=== PATIENT | male | born 1965 | race Caucasian/White ===

== ENCOUNTER 2016-08-09 10:28 | Emergency (ER) | payer OTHER ==
[~2016-08-09] VITALS: Ht 180.3 cm; Wt 107.0 kg
[~2016-08-09 10:28] MED LIST: FURO20TA PO; GABA600T PO; LEVA750T PO; LINE1TAB PO; XANA1TAB2 PO
[2016-08-09 10:39] VITALS: BP 145/86; PULSE 85; RESP 16; TEMP 98.6; O2SAT 99
[2016-08-09 10:42] VITALS: BP 145/86; PULSE 84; RESP 16; O2SAT 100
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
[2016-08-09] MEDS ORDERED: METF500T PO (11:02)
[2016-08-09] MEDS ORDERED: PRED10 PO (11:02)
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
[2016-08-09] MEDS ORDERED: ROBA750T PO (12:29)
[2016-08-09] MEDS ORDERED: MOBI15TA PO (12:29)
[2016-08-09 12:56] VITALS: BP 137/82; PULSE 80; RESP 18; O2SAT 99
== END 2016-08-09 12:59 | disposition home or self-care (01) ==
LOC: NEPC 10:28
DX: S16.1XXA Strain of muscle, fascia and tendon at neck level, initial encounter (principal); S46.912A Strain of unspecified muscle, fascia and tendon at shoulder and upper arm level, left arm, initial encounter; I10 Essential (primary) hypertension; E78.00 Pure hypercholesterolemia, unspecified; V43.52XA Car driver injured in collision with other type car in traffic accident, initial encounter; Y93.9 Activity, unspecified; Y92.9 Unspecified place or not applicable; Y99.8 Other external cause status
CPT/HCPCS: 71010; 72125; 73030

== ENCOUNTER 2016-09-15 19:01 | Emergency (ER) | payer OTHER, MEDICAID ==
[~2016-09-15] VITALS: Ht 177.8 cm; Wt 107.0 kg
[~2016-09-15 19:01] MED LIST changes: -LEVA750T PO; +METF500T PO; +MOBI15TA PO; +PRED10 PO; +ROBA750T PO
[2016-09-15 19:16] VITALS: BP 114/81; PULSE 80; RESP 16; TEMP 98.2; O2SAT 97
--- NOTE | 2016-09-15 19:56 | PD ---
HPI Chief Complaint: Respiratory Symptoms Time Seen by Provider: 19:46 Travel History International Travel<30 days: No Contact w/Intl Traveler<30days: No Traveled to known affect area: No History of Present Illness HPI The patient is a 51-year-old male that for the past 2 days complains of a sharp , pleuritic left chest wall pain made worse with coughing and movements. It hurts to touch the area. The pain radiates the back on both sides. He states he is coughing up green sputum. He quit smoking 20 years ago. He denies any fever. He denies any hemoptysis. He does not have any real shortness of breath , it just hurts him to breathe. The patient has COPD and is on oxygen continuously. PFSH Past Medical History Hx Anticoagulant Therapy: No Arthritis: Yes Asthma: No Autoimmune Disease: No Anxiety: Yes Depression: No Heart Rhythm Problems: No Cancer: No Cardiovascular Problems: Yes (HTN, CHOL) High Cholesterol: Yes Chest Pain: No Congestive Heart Failure: No COPD: No Cerebrovascular Accident: No Diabetes: No Diminished Hearing: No Endocrine: No Gastrointestinal Disorders: No GERD: No Genitourinary: Yes Hiatal Hernia: No Hypertension: Yes Immune Disorder: No Kidney Stones: No Musculoskeletal: Yes Neurologic: Yes (NEUROPATHY) Psychiatric: Yes Reproductive: No Respiratory: Yes (BRONCHITIS, SARCOIDOSIS (ON OXYGEN 17/10 AT HOME)) Migraines: No Pneumonia: Yes Seizures: No Sleep Apnea: No Thyroid Disease: No Ulcer: No Influenza Vaccination: Yes Past Surgical History Abdominal Surgery: No Cardiac Surgery: No Ear Surgery: No Endocrine Surgery: No Eye Surgery: No Genitourinary Surgery: No Gynecologic Surgery: No Neurologic Surgery: Yes (laminectomy) Oral Surgery: No Thoracic Surgery: No Other Surgery: Yes ([id number]) Social History Alcohol Use: No Tobacco Use: No (QUIT AGE 31) Substance Use: Yes (RARE MARIJUANA USE) Allergies-Medications (Allergen,Severity, Reaction): Coded Allergies: Guaifenesin (Verified Allergy, Severe, Shortness of Breath, 09/15/16) "STOPPED MY BREATHING" Penicillin (Verified Allergy, Severe, Hives, 09/15/16) Reported Meds & Prescriptions Reported Meds & Active Scripts Active Furosemide 20 Mg Tab 20 Mg PO DAILY Reported Ventolin Hfa 18 GM Inh (Albuterol Sulfate) 90 Mcg/Act Aer 2 Puff INH Q4-6H PRN Albuterol Neb (Albuterol Sulfate) 2.5 Mg/3 Ml Neb 2.5 Mg NEB Q4HR NEB PRN Prednisone 10 Mg Tab 15 Mg PO DAILY Gabapentin 600 Mg Tab 600 Mg PO TID Xanax (Alprazolam) 1 Mg Tab 1 Mg PO TID Review of Systems Except as stated in HPI: all other systems reviewed are Neg Physical Exam Narrative GENERAL: The patient is alert, oriented 3 in slight apparent distress with his pleuritic chest pain. His vital signs are normal. SKIN: Focused skin assessment warm/dry. HEAD: Atraumatic. Normocephalic. EYES: Pupils equal and round. No scleral icterus. No injection or drainage. ENT: No nasal bleeding or discharge. Mucous membranes pink and moist. NECK: Trachea midline. No JVD. CARDIOVASCULAR: Regular rate and rhythm. No murmur appreciated. RESPIRATORY: No accessory muscle use. A few slight rhonchi are heard bilaterally. Breath sounds equal bilaterally. I can completely reproduce the patient's chest pain by pressing on the chest wall where the patient perceives his pain. The ribs appear very tender but no crepitus, neither bony nor air is present. Greatly diminished breath sounds are heard bilaterally. GASTROINTESTINAL: Abdomen soft, non-tender, nondistended. Hepatic and splenic margins not palpable. MUSCULOSKELETAL: No obvious deformities. No clubbing. No cyanosis. No edema. NEUROLOGICAL: Awake and alert. No obvious cranial nerve deficits. Motor grossly within normal limits. Normal speech. PSYCHIATRIC: Appropriate mood and affect; insight and judgment normal. Data Data Last Documented VS Vital Signs Date Time Temp Pulse Resp B/P Pulse Ox O2 Delivery O2 Flow Rate FiO2 09/15/16 20:16 77 09/15/16 20:13 20 99 Nasal Cannula 3 09/15/16 19:16 98.2 114/81 Orders Complete Blood Count With Diff (09/15/16 19:56) Basic Metabolic Panel (Bmp) (09/15/16 19:56) Chest, Pa & Lat (09/15/16 19:56) Alprazolam (Xanax) (09/15/16 21:15) Labs Laboratory Tests Test 09/15/16 20:07 White Blood Count 10.9 TH/MM3 Red Blood Count 4.13 MIL/MM3 Hemoglobin 12.9 GM/DL Hematocrit 36.8 % Mean Corpuscular Volume 89.2 FL Mean Corpuscular Hemoglobin 31.3 PG Mean Corpuscular Hemoglobin 35.1 % Concent Red Cell Distribution Width 13.0 % Platelet Count 203 TH/MM3 Mean Platelet Volume 8.3 FL Neutrophils (%) (Auto) 78.3 % Lymphocytes (%) (Auto) 11.7 % Monocytes (%) (Auto) 6.1 % Eosinophils (%) (Auto) 0.5 % Basophils (%) (Auto) 3.4 % Neutrophils # (Auto) 8.4 TH/MM3 Lymphocytes # (Auto) 1.3 TH/MM3 Monocytes # (Auto) 0.7 TH/MM3 Eosinophils # (Auto) 0.1 TH/MM3 Basophils # (Auto) 0.4 TH/MM3 CBC Comment DIFF FINAL Differential Comment Sodium Level 142 MEQ/L Potassium Level 3.7 MEQ/L Chloride Level 104 MEQ/L Carbon Dioxide Level 29.6 MEQ/L Anion Gap 8 MEQ/L Blood Urea Nitrogen 13 MG/DL Creatinine 0.99 MG/DL Estimat Glomerular Filtration 79 ML/MIN Rate Random Glucose 155 MG/DL Calcium Level 8.9 MG/DL MDM Medical Decision Making Medical Screen Exam Complete: Yes Emergency Medical Condition: Yes Medical Record Reviewed: Yes Interpretation(s) The chest x-ray shows no acute disease. The CBC shows a hemoglobin of 12.9 with hematocrit 36.6 but is otherwise unremarkable. The basic metabolic profile shows a glucose of 155 but is otherwise unremarkable. Differential Diagnosis Pneumonia, bronchitis, viral syndrome Narrative Course Patient has COPD and bronchitis. Plan: He will be given a course of Zithromax for 5 days. He needs to increase his liquid intake. He does have green sputum and states that this is the same way he felt before he got a pneumonia. Physician Communication Physician Communication The antibiotic is one tablet daily for 5 days. If this is a virus the antibiotic will not be of any benefit because we cannot treat viruses. Follow- up with the [place] next week. Diagnosis Primary Impression: Bronchitis Med/Other Pt SpecificInfo: Prescription(s) given Scripts Azithromycin (Zithromax)500 Mg Kbn230 Mg PO DAILY 5 Days Ref 0 Prov:Lj Montano MD 09/15/16 Disposition: 01 DISCHARGE HOME Condition: Stable Lj Montano MD Sep 15, 2016 19:56
[2016-09-15 20:13] VITALS: PULSE 77; RESP 20; O2SAT 97; O2SAT 99
[2016-09-15] MEDS ORDERED: VENTAER INH (20:19)
[2016-09-15] MEDS ORDERED: ALBU0.08 NEB (20:19)
[2016-09-15 20:20] LABS: AUTOMATED NEUTROPHIL # 8.4 TH/MM3 (1.8-7.7); BASOPHIL # 0.4 TH/MM3 (0-0.2); BASOPHIL % 3.4 % (0.0-2.0); EOSINOPHIL # 0.1 TH/MM3 (0-0.4); EOSINOPHIL % 0.5 % (0.0-4.0); HEMATOCRIT 36.8 % (39.0-51.0); HEMO FLAGS DIFF FINAL; LYMPH % 11.7 % (9.0-44.0); LYMPHOCYTE # 1.3 TH/MM3 (1.0-4.8); MEAN CELL VOLUME 89.2 FL (80.0-100.0); MEAN CORPUSCULAR HEMOGLOBIN 31.3 PG (27.0-34.0); MEAN CORPUSCULAR HGB CONC 35.1 % (32.0-36.0); MONO % 6.1 % (0.0-8.0); NEUT % 78.3 % (16.0-70.0); PLATELET COUNT 203 TH/MM3 (150-450); RED BLOOD COUNT 4.13 MIL/MM3 (4.50-5.90); WHITE BLOOD COUNT 10.9 TH/MM3 (4.0-11.0)
[2016-09-15 20:24] LABS: POTASSIUM 3.7 MEQ/L (3.5-5.1)
[2016-09-15 20:27] LABS: BICARBONATE 29.6 MEQ/L (21.0-32.0)
--- NOTE | 2016-09-15 21:01 | RADRPT ---
EXAM DATE/TIME: 09/15/2016 20:33 [facility] COMPARISON: CHEST PA & LAT, December 25, 2015, 5:47. INDICATIONS : Patient has been short of breath since yesterday and also has a productive cough. MEDICAL HISTORY : Hypertension. SURGICAL HISTORY : None. ENCOUNTER: Initial ACUITY: 1 day PAIN SCORE: 6/10 LOCATION: Bilateral chest FINDINGS: PA and lateral views of the chest demonstrate the lungs to be symmetrically aerated without evidence of mass, infiltrate or effusion. The cardiomediastinal contours are unremarkable. Osseous structure s are intact. CONCLUSION: No acute disease. Abhishek Rodríguez MD on September 15, 2016 at 20:57 Board Certified Radiologist. This report was verified electronically.
[2016-09-15] MEDS ORDERED: ZITH500T PO (21:14)
[2016-09-15] MEDS ORDERED: ALPRAZolam 0.5 MG TAB PO ONE (21:15)
[2016-09-15] MEDS ORDERED: ALPRAZolam 1 MG TAB PO ONE (21:15)
[2016-09-15 21:31] VITALS: BP 118/80
== END 2016-09-15 21:32 | disposition home or self-care (01) ==
LOC: PHED 19:01
DX: J40 Bronchitis, not specified as acute or chronic (principal); J44.9 Chronic obstructive pulmonary disease, unspecified; I10 Essential (primary) hypertension; E78.00 Pure hypercholesterolemia, unspecified; G62.9 Polyneuropathy, unspecified; Z99.81 Dependence on supplemental oxygen; R07.89 Other chest pain
CPT/HCPCS: 71020; 80048; 85025; 99284

== ENCOUNTER 2017-01-21 17:35 | Inpatient (IN) | payer MEDICAID, OTHER ==
[~2017-01-21] VITALS: Ht 180.3 cm; Wt 114.0 kg
[~2017-01-21 17:35] MED LIST changes: +ALBU0.08 NEB; -LINE1TAB PO; -METF500T PO; -MOBI15TA PO; -ROBA750T PO; +VENTAER INH; +ZITH500T PO
[2017-01-21 17:46] VITALS: BP 164/88; PULSE 73; RESP 18; TEMP 98.5; O2SAT 97
--- NOTE | 2017-01-21 18:08 | PD ---
HPI Chief Complaint: Injury Time Seen by Provider: 17:59 Travel History International Travel<30 days: No Contact w/Intl Traveler<30days: No Traveled to known affect area: No History of Present Illness HPI The patient is a 51-year-old male who presents to the emergency department for left leg injury after stepping off a curb. The patient states when he stepped off the curb, he somehow twisted his leg and fell to the ground. He complains of left ankle pain that radiates to left knee. He complains of tenderness over the medial lateral aspect the left ankle as well as the lateral aspect of the proximal left fibula. He does note abrasion over the anterior aspect of the left tibia as well as an abrasion over the extensor surface of the left forearm. He denies any head injury or trauma during the fall. He denies any headache, neck pain, chest, shortness breath, nausea, vomiting, abdominal pain, or syncope. Symptoms are moderate, exacerbated after falling, and there are no current alleviating factors. PFSH Past Medical History Hx Anticoagulant Therapy: No Arthritis: Yes Asthma: No Autoimmune Disease: No Anxiety: Yes Depression: No Heart Rhythm Problems: No Cancer: No Cardiovascular Problems: Yes (HTN, CHOL) High Cholesterol: Yes Chest Pain: No Congestive Heart Failure: No COPD: No Cerebrovascular Accident: No Diabetes: No Diminished Hearing: No Endocrine: No Gastrointestinal Disorders: No GERD: No Genitourinary: Yes Hiatal Hernia: No Hypertension: Yes Immune Disorder: No Kidney Stones: No Musculoskeletal: Yes Neurologic: Yes (NEUROPATHY) Psychiatric: Yes Reproductive: No Respiratory: Yes Migraines: No Pneumonia: Yes Seizures: No Sleep Apnea: No Thyroid Disease: No Ulcer: No Past Surgical History Abdominal Surgery: No Cardiac Surgery: No Ear Surgery: No Endocrine Surgery: No Eye Surgery: No Genitourinary Surgery: No Gynecologic Surgery: No Neurologic Surgery: Yes (laminectomy) Oral Surgery: No Thoracic Surgery: No Other Surgery: Yes ([id number]) Social History Alcohol Use: No Tobacco Use: No (QUIT AGE 31) Substance Use: Yes (RARE MARIJUANA USE) Allergies-Medications (Allergen,Severity, Reaction): Coded Allergies: guaifenesin (Unverified Allergy, Severe, Shortness of Breath, 01/21/17) "STOPPED MY BREATHING" penicillin G (Unverified Allergy, Severe, Hives, 01/21/17) Reported Meds & Prescriptions Reported Meds & Active Scripts Active [place] (Hydrocodone-Acetaminophen) 5-325 mg Tab 1 Tab PO Q6H PRN Furosemide 20 Mg Tab 20 Mg PO DAILY Reported Oxygen (O2) Device Liter REGULO.CANULA CONTINUOUS Oxygen Concentrator Portable Gaseous 2 L/min via Nasal Canula Continuous For 99 months Ventolin Hfa 18 GM Inh (Albuterol Sulfate) 90 Mcg/Act Aer 2 Puff INH Q4-6H PRN Albuterol Neb (Albuterol Sulfate) 2.5 Mg/3 Ml Neb 2.5 Mg NEB Q4HR NEB PRN Prednisone 10 Mg Tab 15 Mg PO DAILY Gabapentin 600 Mg Tab 600 Mg PO TID Xanax (Alprazolam) 1 Mg Tab 1 Mg PO TID Review of Systems Except as stated in HPI: all other systems reviewed are Neg HENT: No: Headaches, Neck Pain Cardiovascular: No: Chest Pain or Discomfort, Syncope Respiratory: No: Shortness of Breath Gastrointestinal: No: Nausea, Vomiting, Abdominal Pain Musculoskeletal: Positive: Edema, Pain Skin: Positive Other (abrasions) Neurologic: No: Paresthesia, Sensory Disturbance Physical Exam Narrative GENERAL: Awake, alert, pleasant 51-year-old male who appears his stated age is in no acute respiratory distress. SKIN: Focused skin assessment warm/dry. Abrasion over the extensor surface of the forearm as well as anterior aspect of the proximal left tibia. HEAD: Atraumatic. Normocephalic. No visible cephalohematoma. EYES: Pupils equal and round. No scleral icterus. No injection or drainage. ENT: No nasal bleeding or discharge. Mucous membranes pink and moist. NECK: Trachea midline. No JVD. Tenderness of the cervical vertebrae. CARDIOVASCULAR: Regular rate and rhythm. No murmur appreciated. RESPIRATORY: No accessory muscle use. Clear to auscultation. Breath sounds equal bilaterally. GASTROINTESTINAL: Abdomen soft, non-tender, nondistended. MUSCULOSKELETAL: Examination of the left lower extremity reveals edema over the medial lateral malleus with tenderness. Patient also has tenderness of the proximal one third of the left fibula. He is able flex and extend the left knee , patella is midline. Positive left dorsalis pedal pulse. NEUROLOGICAL: Awake and alert. No obvious cranial nerve deficits. Motor grossly within normal limits. Normal speech. Sensation is intact the medial, lateral, dorsal aspect the left foot. Patient alert and oriented 4. PSYCHIATRIC: Appropriate mood and affect; insight and judgment normal. Data Data Last Documented VS Vital Signs Date Time Temp Pulse Resp B/P (MAP) Pulse Ox O2 Delivery O2 Flow Rate FiO2 01/21/17 20:01 85 18 132/88 (103) 98 Nasal Cannula 3.00 01/21/17 17:46 98.5 Orders Orders Morphine Inj (Morphine Inj) (01/21/17 18:15) Promethazine Inj (Phenergan Inj) (01/21/17 18:15) Tibia/Fibula (Ap/Lat) (01/21/17 ) Tetanus/Diphtheria Tox Adult (Tetanus/Di (01/21/17 18:15) Morphine Inj (Morphine Inj) (01/21/17 18:45) Morphine Inj (Morphine Inj) (01/21/17 18:45) Crutches (01/21/17 18:46) Ankle, Complete ([id number]) (01/21/17 ) Splint Or Brace Apply/Monitor (01/21/17 19:04) Admit Order (Ed Use Only) (01/21/17 20:14) Complete Blood Count With Diff (01/21/17 20:14) Comprehensive Metabolic Panel (01/21/17 20:14) Prothrombin Time / Inr (Pt) (01/21/17 20:14) Act Partial Throm Time (Ptt) (01/21/17 20:14) MDM Medical Decision Making Medical Screen Exam Complete: Yes Emergency Medical Condition: Yes Medical Record Reviewed: Yes Interpretation(s) Last Impressions Tibia/Fibula X-Ray 01/21/17 0000 Signed Impressions: Service Date/Time: Saturday, January 21, 2017 18:29 - CONCLUSION: Fracture of the proximal fibula. Abhishek Rodríguez MD Differential Diagnosis Differential diagnoses includes fracture, dislocation, contusion, hematoma, abrasion, mechanical fall. Narrative Course The patient was administered morphine and Phenergan IM. X-ray of the left tibia /fibular was obtained. The patient's tetanus shot was updated. X-ray of the left tibia/fibular reveals a proximal left fibula fracture, questionable posterior tibial fracture. I discussed the patient with the physician registered dental assistant rda on-call for Dr. Bragg at cell phone number [phone], he requests 3 view x-ray of the ankle after Mahsa splint is placed. The patient will be provided pain medications and follow-up information for Dr. Bragg. The patient was signed out to Dr. Johnson at 7 PM with x-ray of the ankle pending. Diagnosis Primary Impression: Fracture of proximal end of left fibula Qualified Codes: S82.832A - Other fracture of upper and lower end of left fibula, initial encounter for closed fracture Admitting Information Admitting Physician Requests: Admit Referrals: Mervin Bragg MD Patient Instructions: General Instructions, Narcotic given in the ED Additional Instructions: Splint and crutches as directed. Elevate, ice, pain medications as directed. Follow-up with Dr. Bragg. Return if symptoms worsen or progress. Med/Other Pt SpecificInfo: Prescription(s) given Scripts Calcium Carbonate-Vitamin D (Calcium 600+D 200) 600-200 Mg-Unit Tab 1 TAB PO BID for Nutritional Supplement, #90 TAB 0 Refills Prov: Abhishek Lewis Jr. 01/22/17 Hydrocodone-Acetaminophen (Hydrocodone-Acetaminophen) 7.5-325 mg Tab 1 TAB PO Q4H Y for PAIN, #60 TAB 0 Refills Prov: Abhishek Lewis Jr. 01/22/17 Hydrocodone-Acetaminophen ([place]) 5-325 mg Tab 1 TAB PO Q6H Y for PAIN, #20 TAB 0 Refills Prov: Agustin Graff MD 01/21/17 Condition: Stable Agustin Graff MD Jan 21, 2017 18:08
[2017-01-21] MEDS ORDERED: OXYGENDME NAS.CANULA (18:09)
[2017-01-21] MEDS ORDERED: PROMETHAZINE INJ 25 MG/ML VIAL IM ONE (18:15)
[2017-01-21] MEDS ORDERED: TETANUS/DIPHTHERIA TOXOID ADULT 0.5 ML VIAL IM ONE (18:15)
[2017-01-21] MEDS ORDERED: MORPHINE SULFATE 4 MG/ML INJ IM ONE (18:15)
[2017-01-21] MEDS ORDERED: MORPHINE SULFATE 8 MG/ML INJ IM ONE ×2 (18:45)
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
[2017-01-21] MEDS ORDERED: NORC5TAB PO (19:10)
[2017-01-21 20:01] VITALS: BP 132/88; PULSE 85; RESP 18; O2SAT 98
--- NOTE | 2017-01-21 20:20 | RADRPT ---
EXAM DATE/TIME: 01/21/2017 19:13 [place] COMPARISON: TIBIA/FIBULA LEFT (AP/LAT), January 21, 2017, 18:29. INDICATIONS : Pain post fall. MEDICAL HISTORY : Hypertension. SURGICAL HISTORY : Spinal. ENCOUNTER: Initial ACUITY: 1 day PAIN SCORE: 10/10 LOCATION: Left Lower leg FINDINGS: Three-view examination of the ankle is performed in fiberglass splint. The posterior tibial fragment remains mildly displaced and the multiple fragments of the medial tibiotalar region persist; at leas t 8 fragments seen. There is persistent widening of the medial ankle mortise. CONCLUSION: Ankle fractures in fiberglass splint. Jude Rankin MD on January 21, 2017 at 20:17 Board Certified Radiologist. This report was verified electronically.
[2017-01-21] MEDS ORDERED: MORPHINE SULFATE 2 MG/ML INJ SQ PRN (20:30)
[2017-01-21] MEDS ORDERED: RESP: ALBUTEROL 2.5 MG/IPRATROPIUM 0.5 MG NEB (PRN) NEB (20:30)
[2017-01-21] MEDS ORDERED: NALOXONE HCL 0.4 MG/ML AMP IV PUSH PRN (20:30)
[2017-01-21] MEDS ORDERED: SODIUM CHLORIDE 0.9% FLUSH 10 ML FLUSH IV FLUSH PRN (20:30)
[2017-01-21 20:50] LABS: AUTOMATED NEUTROPHIL # 8.9 TH/MM3 (1.8-7.7); BASOPHIL % 0.4 % (0.0-2.0); EOSINOPHIL # 0.1 TH/MM3 (0-0.4); EOSINOPHIL % 0.5 % (0.0-4.0); HEMATOCRIT 41.8 % (39.0-51.0); LYMPH % 11.7 % (9.0-44.0); LYMPHOCYTE # 1.3 TH/MM3 (1.0-4.8); MEAN CORPUSCULAR HEMOGLOBIN 28.9 PG (27.0-34.0); MEAN CORPUSCULAR HGB CONC 33.5 % (32.0-36.0); MEAN PLATELET VOLUME 8.1 FL (7.0-11.0); MONO % 3.8 % (0.0-8.0); MONOCYTE # 0.4 TH/MM3 (0-0.9); NEUT % 83.6 % (16.0-70.0); PLATELET COUNT 206 TH/MM3 (150-450); RED BLOOD COUNT 4.86 MIL/MM3 (4.50-5.90); RED CELL DISTRIBUTION WIDTH 13.8 % (11.6-17.2); WHITE BLOOD COUNT 10.7 TH/MM3 (4.0-11.0)
[2017-01-21 20:56] LABS: CHLORIDE 105 MEQ/L (98-107); SODIUM (NA) 140 MEQ/L (136-145)
[2017-01-21 21:00] LABS: ALBUMIN 3.9 GM/DL (3.4-5.0); BICARBONATE 26.7 MEQ/L (21.0-32.0); BLOOD UREA NITROGEN 12 MG/DL (7-18); GLUCOSE,RANDOM 113 MG/DL (74-106)
[2017-01-21 21:02] LABS: INTERNATIONAL NORMALIZED RATIO 0.9 RATIO
[2017-01-21 21:03] LABS: ALT (GPT) 30 U/L (12-78); AST (GOT) 22 U/L (15-37); CREATININE 0.97 MG/DL (0.60-1.30); GLOMERULAR FILTRATION RATE 81 ML/MIN (>89)
[2017-01-21 21:05] LABS: TOTAL BILIRUBIN ADULT 0.4 MG/DL (0.2-1.0); TOTAL PROTEIN 7.6 GM/DL (6.4-8.2)
[2017-01-21 21:06] LABS: ALKALINE PHOSPHATASE 67 U/L (45-117)
[2017-01-21] MEDS: SODIUM CHLORIDE 0.9% FLUSH 10 ML FLUSH IV FLUSH SCH (21:06)
[2017-01-21 21:27] VITALS: BP 138/80; PULSE 82; RESP 18; O2SAT 97
[2017-01-21 22:29] VITALS: BP 136/84; PULSE 82; RESP 18; O2SAT 97
[2017-01-21 23:00] VITALS: BP 125/81; PULSE 70; RESP 18; TEMP 98.4; O2SAT 97
[2017-01-22] MEDS ORDERED: SODIUM CHLORID 0.9% 500 ML IV PRN (01:00)
[2017-01-22] MEDS ORDERED: POVIDONE IODINE 5% (ANTISEPSIS KIT) 4 APPLICATIONS EACH NARE PRN (01:00)
[2017-01-22] MEDS ORDERED: LACTATED RINGER'S 1000 ML IV PRN (01:00)
[2017-01-22] MEDS ORDERED: INSULIN HUMAN REGULAR 1,000 UNITS/10 ML VIAL SQ PRN (01:00)
[2017-01-22] MEDS ORDERED: CHLORHEXIDINE GLUCONATE 2 % 1 PACK (2 CLOTHS) TOPICAL PRN (01:00)
[2017-01-22] MEDS: MORPHINE SULFATE 2 MG/ML INJ IV PRN ×2 (01:32→06:37)
[2017-01-22] MEDS ORDERED: ALBUTEROL SULFATE 90 MCG/ACT HFA 8 GM INHALER INH PRN (03:00)
[2017-01-22] MEDS ORDERED: RESP: ALBUTEROL 2.5 MG/3 ML NEB (PRN) NEB (03:00)
[2017-01-22] MEDS ORDERED: HYDROCORTISONE SOD SUCCINATE 100 MG VIAL IV PUSH ONE (03:00)
--- NOTE | 2017-01-22 03:08 | HHI.HP ---
[facility] Service [facility] Primary Care Physician [facility] Admission Diagnosis ankle fracture Diagnoses: Travel History International Travel<30 Days: No Contact w/Intl Traveler <30 Da: No Traveled to Known Affected Are: No History of Present Illness 51-year-old male with a history of sarcoidosis, bronchitis, anxiety, panic attacks, who presents with a ground-level fall, fracturing her left lower leg. He says that he tripped going down the steps, his oxygen tank fell forward pulling him further. He denies any other injuries. Denies any chest pain.report shortness of breath is at baseline. Review of Systems Except as stated in HPI: all other systems reviewed are Neg Past Family Social History Past Medical History Sarcoidosis History of pneumonia Hypertension Radiculopathy Anxiety Panic attacks Agoraphobia Past Surgical History Bilateral knee arthroplasty Bronchoscopies Spinal laminectomy Reported Medications Reported Meds & Active Scripts Active Furosemide 20 Mg Tab 20 Mg PO DAILY Reported Oxygen (O2) Device Liter REGULO.CANULA CONTINUOUS Oxygen Concentrator Portable Gaseous 2 L/min via Nasal Canula Continuous For 99 months Ventolin Hfa 18 GM Inh (Albuterol Sulfate) 90 Mcg/Act Aer 2 Puff INH Q4-6H PRN Albuterol Neb (Albuterol Sulfate) 2.5 Mg/3 Ml Neb 2.5 Mg NEB Q4HR NEB PRN Prednisone 10 Mg Tab 15 Mg PO DAILY Gabapentin 600 Mg Tab 600 Mg PO TID Xanax (Alprazolam) 1 Mg Tab 1 Mg PO TID prednisone 15 mg by mouth daily Allergies: Coded Allergies: guaifenesin (Unverified Allergy, Severe, Shortness of Breath, 01/21/17) "STOPPED MY BREATHING" penicillin G (Unverified Allergy, Severe, Hives, 01/21/17) Family History Brother had MT in his 40s. Social History he quit smoking 18 years ago. Nondrinker. Patient will marijuana use. Physical Exam Vital Signs Vital Signs Date Time Temp Pulse Resp B/P (MAP) Pulse Ox O2 Delivery O2 Flow Rate FiO2 01/21/17 23:39 Nasal Cannula 3.00 01/21/17 23:00 98.4 70 18 125/81 (96) 97 01/21/17 22:30 82 18 97 01/21/17 22:29 82 18 136/84 (101) 97 01/21/17 21:27 82 18 138/80 (99) 97 01/21/17 20:01 85 18 132/88 (103) 98 Nasal Cannula 3.00 01/21/17 17:46 98.5 73 18 164/88 (113) 97 Physical Exam GENERAL: This is a well-nourished, well-developed patient, in no apparent distress. Alert and oriented 3. SKIN: No rashes, ecchymoses or lesions. Cool and dry. HEAD: Atraumatic. Normocephalic. No temporal or scalp tenderness. EYES: Pupils equal round and reactive. Extraocular motions intact. No scleral icterus. No injection or drainage. ENT: Nose without bleeding, purulent drainage or septal hematoma. Throat without erythema, tonsillar hypertrophy or exudate. Uvula midline. Airway patent. NECK: Trachea midline. No JVD or lymphadenopathy. Supple, nontender, no meningeal signs. CARDIOVASCULAR: Regular rate and rhythm without murmurs, gallops, or rubs. RESPIRATORY: Clear to auscultation. Breath sounds equal bilaterally. No wheezes , rales, or rhonchi. GASTROINTESTINAL: Abdomen soft, non-tender, nondistended. No hepato-splenomegaly , or palpable masses. No guarding. MUSCULOSKELETAL: Extremities without clubbing, cyanosis, or edema. Left leg in splint. Peripheral perfusion intact. NEUROLOGICAL: Awake and alert. Cranial nerves II through XII intact. Motor and sensory grossly within normal limits. Five out of 5 muscle strength in all muscle groups. Normal speech. Laboratory Laboratory Tests Test 01/21/17 20:40 White Blood Count 10.7 Red Blood Count 4.86 Hemoglobin 14.0 Hematocrit 41.8 Mean Corpuscular Volume 86.0 Mean Corpuscular Hemoglobin 28.9 Mean Corpuscular Hemoglobin Concent 33.5 Red Cell Distribution Width 13.8 Platelet Count 206 Mean Platelet Volume 8.1 Neutrophils (%) (Auto) 83.6 Lymphocytes (%) (Auto) 11.7 Monocytes (%) (Auto) 3.8 Eosinophils (%) (Auto) 0.5 Basophils (%) (Auto) 0.4 Neutrophils # (Auto) 8.9 Lymphocytes # (Auto) 1.3 Monocytes # (Auto) 0.4 Eosinophils # (Auto) 0.1 Basophils # (Auto) 0.0 CBC Comment DIFF FINAL Differential Comment Prothrombin Time 10.0 Prothromb Time International Ratio 0.9 Activated Partial Thromboplast Time 26.3 Blood Urea Nitrogen 12 Creatinine 0.97 Random Glucose 113 Total Protein 7.6 Albumin 3.9 Calcium Level 9.0 Alkaline Phosphatase 67 Aspartate Amino Transf (AST/SGOT) 22 Alanine Aminotransferase (ALT/SGPT) 30 Total Bilirubin 0.4 Sodium Level 140 Potassium Level 3.9 Chloride Level 105 Carbon Dioxide Level 26.7 Anion Gap 8 Estimat Glomerular Filtration Rate 81 Result Diagram: 01/21/17203901/21/172039 Imaging Last Impressions Tibia/Fibula X-Ray 01/21/17 0000 Signed Impressions: Service Date/Time: Saturday, January 21, 2017 18:29 - CONCLUSION: Fracture of the proximal fibula. Abhishek Rodríguez MD Ankle X-Ray 01/21/17 0000 Signed Impressions: Service Date/Time: Saturday, January 21, 2017 19:13 - CONCLUSION: Ankle fractures in fiberglass splint. Jude Rankin MD [place] VTE Risk Assessment Caprini VTE Risk Assessment: Mod/High Risk (score >= 2) VTE Pharm Contraindication: High risk for bleeding Caprini Risk Assessment Model Point Value = 1 Point Value = 2 Point Value = 3 Point Value = 5 Age 41-60 Minor surgery BMI > 25 kg/m2 Swollen legs Varicose veins or History of unexplained or recurrent spontaneous Oral contraceptives or hormone replacement Sepsis (< 1 month) Serious lung disease, including pneumonia (< 1 month) Abnormal pulmonary function Acute myocardial infarction Congestive heart failure (< 1 month) History of inflammatory bowel disease Medical patient at bed rest Age 61-74 Arthroscopic surgery Major open surgery (> 45 min) Laparoscopic surgery (> 45 min) Malignancy Confined to bed (> 72 hours) Immobilizing plaster cast Central venous access Age >= 75 History of VTE Family history of VTE Factor V Leiden Prothrombin [id number] Lupus anticoagulant Anticardiolipin antibodies Elevated serum homocysteine Heparin-induced thrombocytopenia Other congenital or acquired thrombophilia Stroke (< 1 month) Elective arthroplasty Hip, pelvis, or leg fracture Acute spinal cord injury (< 1 month) Prophylaxis Regimen Total Risk Factor Score Risk Level Prophylaxis Regimen 0-1 Low Early ambulation 2 Moderate Order ONE of the following: *Sequential Compression Device (SCD) *Heparin 5000 units SQ BID 3-4 Higher Order ONE of the following medications: *Heparin 5000 units SQ TID *Enoxaparin/Lovenox 40 mg SQ daily (WT < 150 kg, CrCl > 30 mL/min) *Enoxaparin/Lovenox 30 mg SQ daily (WT < 150 kg, CrCl > 10-29 mL/min) *Enoxaparin/Lovenox 30 mg SQ BID (WT < 150 kg, CrCl > 30 mL/min) AND/OR *Sequential Compression Device (SCD) 5 or more Highest Order ONE of the following medications: *Heparin 5000 units SQ TID (Preferred with Epidurals) *Enoxaparin/Lovenox 40 mg SQ daily (WT < 150 kg, CrCl > 30 mL/min) *Enoxaparin/Lovenox 30 mg SQ daily (WT < 150 kg, CrCl > 10-29 mL/min) *Enoxaparin/Lovenox 30 mg SQ BID (WT < 150 kg, CrCl > 30 mL/min) AND *Sequential Compression Device (SCD) Assessment and Plan Assessment and Plan //Left fibula fracture //Suspected osteoporosis due to fracture from a ground-level fall -Plan per orthopedics. Appreciate assistance. -Vitamin D level pending. -Has chronic sarcoid, suspected adrenal insufficiency, however is optimized for surgery. //History of sarcoidosis. Stable on 3 L oxygen. Nebs as necessary. Continue to monitor. //Adrenal insufficiency. Patient has been on chronic prednisone over 10 mg for many months. Continue prednisone. -Patient should be placed on dexamethasone 50 mg by mouth or IV twice daily perioperatively. //Occasional marijuana use. Patient counseled against use. //Radiculopathy. Patient is on gabapentin 600 mg 3 times daily. Continue at 400 mg 3 times a day.. //Chronic bilateral lower extremity edema. Will hold on furosemide for now. //Prophylaxis. As per surgical service. Discussed Condition With Patient, nurse, ED physician. Physician Certification 2 Midnight Certification Type: Admission for Inpatient Services Order for Inpatient Services The services are ordered in accordance with Medicare regulations or non- Medicare payer requirements, as applicable. In the case of services not specified as inpatient-only, they are appropriately provided as inpatient services in accordance with the 2-midnight benchmark. Estimated LOS (days): 2 days is the estimated time the patient will need to remain in the hospital, assuming treatment plan goals are met and no additional complications. Post-Hospital Plan: Not yet determined Roberto Maddox MD Jan 22, 2017 03:08
[2017-01-22 04:00] VITALS: BP 130/83; PULSE 66; RESP 18; TEMP 98.3; O2SAT 99
[2017-01-22 06:15] LABS: AUTOMATED NEUTROPHIL # 8.8 TH/MM3 (1.8-7.7); BASOPHIL % 0.4 % (0.0-2.0); EOSINOPHIL # 0.2 TH/MM3 (0-0.4); EOSINOPHIL % 1.4 % (0.0-4.0); HEMOGLOBIN 13.2 GM/DL (13.0-17.0); LYMPH % 13.2 % (9.0-44.0); LYMPHOCYTE # 1.5 TH/MM3 (1.0-4.8); MEAN CELL VOLUME 87.7 FL (80.0-100.0); MEAN CORPUSCULAR HEMOGLOBIN 29.8 PG (27.0-34.0); MEAN PLATELET VOLUME 8.2 FL (7.0-11.0); MONO % 7.7 % (0.0-8.0); MONOCYTE # 0.9 TH/MM3 (0-0.9); NEUT % 77.3 % (16.0-70.0); PLATELET COUNT 187 TH/MM3 (150-450); RED BLOOD COUNT 4.45 MIL/MM3 (4.50-5.90); RED CELL DISTRIBUTION WIDTH 15.1 % (11.6-17.2); WHITE BLOOD COUNT 11.4 TH/MM3 (4.0-11.0)
--- NOTE | 2017-01-22 06:37 | PD ---
Data Data Last Documented VS Vital Signs Date Time Temp Pulse Resp B/P (MAP) Pulse Ox O2 Delivery O2 Flow Rate FiO2 01/21/17 20:01 85 18 132/88 (103) 98 Nasal Cannula 3.00 01/21/17 17:46 98.5 Orders Orders Morphine Inj (Morphine Inj) (01/21/17 18:15) Promethazine Inj (Phenergan Inj) (01/21/17 18:15) Tibia/Fibula (Ap/Lat) (01/21/17 ) Tetanus/Diphtheria Tox Adult (Tetanus/Di (01/21/17 18:15) Morphine Inj (Morphine Inj) (01/21/17 18:45) Morphine Inj (Morphine Inj) (01/21/17 18:45) Crutches (01/21/17 18:46) Ankle, Complete ([id number]) (01/21/17 ) Splint Or Brace Apply/Monitor (01/21/17 19:04) Admit Order (Ed Use Only) (01/21/17 20:14) Complete Blood Count With Diff (01/21/17 20:14) Comprehensive Metabolic Panel (01/21/17 20:14) Prothrombin Time / Inr (Pt) (01/21/17 20:14) Act Partial Throm Time (Ptt) (01/21/17 20:14) MDM Medical Record Reviewed: No Supervised Visit with FARHAN: No Narrative Course This is a 51-year-old male who presents to the emergency department having had a mechanical fall. He has a proximal fibular fracture from her os the distal tibia with widening of the ankle mortise on x-ray. I spoke to Nasir Lewis who would like the patient admitted for surgery by Dr. Bragg tomorrow. Patient was transferred to the main hospital. Diagnosis Primary Impression: Fracture of proximal end of left fibula Qualified Codes: S82.832A - Other fracture of upper and lower end of left fibula, initial encounter for closed fracture Additional Impression: Fracture of distal end of tibia Qualified Codes: S82.309A - Unspecified fracture of lower end of unspecified tibia, initial encounter for closed fracture Admitting Information Admitting Physician Requests: Admit Referrals: Mervin Bragg MD Patient Instructions: General Instructions, Narcotic given in the ED Additional Instruction: Splint and crutches as directed. Elevate, ice, pain medications as directed. Follow-up with Dr. Bragg. Return if symptoms worsen or progress. Scripts Hydrocodone-Acetaminophen ([place]) 5-325 mg Tab 1 TAB PO Q6H Y for PAIN, #20 TAB 0 Refills Prov: Agustin Graff MD 01/21/17 Disposition: 01 DISCHARGE HOME Condition: Stable Gabriella Mejia MD Jan 22, 2017 06:37
--- NOTE | 2017-01-22 06:37 | PD ---
Data Data Last Documented VS Vital Signs Date Time Temp Pulse Resp B/P (MAP) Pulse Ox O2 Delivery O2 Flow Rate FiO2 01/21/17 20:01 85 18 132/88 (103) 98 Nasal Cannula 3.00 01/21/17 17:46 98.5 Orders Orders Morphine Inj (Morphine Inj) (01/21/17 18:15) Promethazine Inj (Phenergan Inj) (01/21/17 18:15) Tibia/Fibula (Ap/Lat) (01/21/17 ) Tetanus/Diphtheria Tox Adult (Tetanus/Di (01/21/17 18:15) Morphine Inj (Morphine Inj) (01/21/17 18:45) Morphine Inj (Morphine Inj) (01/21/17 18:45) Crutches (01/21/17 18:46) Ankle, Complete ([id number]) (01/21/17 ) Splint Or Brace Apply/Monitor (01/21/17 19:04) Admit Order (Ed Use Only) (01/21/17 20:14) Complete Blood Count With Diff (01/21/17 20:14) Comprehensive Metabolic Panel (01/21/17 20:14) Prothrombin Time / Inr (Pt) (01/21/17 20:14) Act Partial Throm Time (Ptt) (01/21/17 20:14) MDM Medical Record Reviewed: No Supervised Visit with FARHAN: No Narrative Course This is a 51-year-old male who presents to the emergency department having had a mechanical fall. He has a proximal fibular fracture from her os the distal tibia with widening of the ankle mortise on x-ray. I spoke to Nasir Lewis who would like the patient admitted for surgery by Dr. Bragg tomorrow. Patient was transferred to the main hospital. Diagnosis Primary Impression: Fracture of proximal end of left fibula Qualified Codes: S82.832A - Other fracture of upper and lower end of left fibula, initial encounter for closed fracture Additional Impression: Fracture of distal end of tibia Qualified Codes: S82.309A - Unspecified fracture of lower end of unspecified tibia, initial encounter for closed fracture Admitting Information Admitting Physician Requests: Admit Referrals: Mervin Bragg MD Patient Instructions: General Instructions, Narcotic given in the ED Additional Instruction: Splint and crutches as directed. Elevate, ice, pain medications as directed. Follow-up with Dr. Bragg. Return if symptoms worsen or progress. Scripts Hydrocodone-Acetaminophen ([place]) 5-325 mg Tab 1 TAB PO Q6H Y for PAIN, #20 TAB 0 Refills Prov: Agustin Graff MD 01/21/17 Disposition: 01 DISCHARGE HOME Condition: Stable Gabriella Mejia MD Jan 22, 2017 06:37
--- NOTE | 2017-01-22 06:37 | PD ---
Data Data Last Documented VS Vital Signs Date Time Temp Pulse Resp B/P (MAP) Pulse Ox O2 Delivery O2 Flow Rate FiO2 01/21/17 20:01 85 18 132/88 (103) 98 Nasal Cannula 3.00 01/21/17 17:46 98.5 Orders Orders Morphine Inj (Morphine Inj) (01/21/17 18:15) Promethazine Inj (Phenergan Inj) (01/21/17 18:15) Tibia/Fibula (Ap/Lat) (01/21/17 ) Tetanus/Diphtheria Tox Adult (Tetanus/Di (01/21/17 18:15) Morphine Inj (Morphine Inj) (01/21/17 18:45) Morphine Inj (Morphine Inj) (01/21/17 18:45) Crutches (01/21/17 18:46) Ankle, Complete ([id number]) (01/21/17 ) Splint Or Brace Apply/Monitor (01/21/17 19:04) Admit Order (Ed Use Only) (01/21/17 20:14) Complete Blood Count With Diff (01/21/17 20:14) Comprehensive Metabolic Panel (01/21/17 20:14) Prothrombin Time / Inr (Pt) (01/21/17 20:14) Act Partial Throm Time (Ptt) (01/21/17 20:14) MDM Medical Record Reviewed: No Supervised Visit with FARHAN: No Narrative Course This is a 51-year-old male who presents to the emergency department having had a mechanical fall. He has a proximal fibular fracture from her os the distal tibia with widening of the ankle mortise on x-ray. I spoke to Nasir Lewis who would like the patient admitted for surgery by Dr. Bragg tomorrow. Patient was transferred to the main hospital. Diagnosis Primary Impression: Fracture of proximal end of left fibula Qualified Codes: S82.832A - Other fracture of upper and lower end of left fibula, initial encounter for closed fracture Additional Impression: Fracture of distal end of tibia Qualified Codes: S82.309A - Unspecified fracture of lower end of unspecified tibia, initial encounter for closed fracture Admitting Information Admitting Physician Requests: Admit Referrals: Mervin Bragg MD Patient Instructions: General Instructions, Narcotic given in the ED Additional Instruction: Splint and crutches as directed. Elevate, ice, pain medications as directed. Follow-up with Dr. Bragg. Return if symptoms worsen or progress. Scripts Hydrocodone-Acetaminophen ([place]) 5-325 mg Tab 1 TAB PO Q6H Y for PAIN, #20 TAB 0 Refills Prov: Agustin Graff MD 01/21/17 Disposition: 01 DISCHARGE HOME Condition: Stable Gabriella Mejia MD Jan 22, 2017 06:37
--- NOTE | 2017-01-22 06:40 | PD.ORT.PN ---
Subjective Subjective Remarks House was splinted out from [place] and is staying at a hotel. He was walking rolled his ankle off a curb and fell to the ground. Only complaint is left leg pain and ankle pain Objective Vitals Vital Signs Date Time Temp Pulse Resp B/P (MAP) Pulse Ox O2 Delivery O2 Flow Rate FiO2 01/22/17 04:00 98.3 66 18 130/83 (99) 99 01/21/17 23:39 Nasal Cannula 3.00 01/21/17 23:05 97 Nasal Cannula 3.00 01/21/17 23:00 98.4 70 18 125/81 (96) 97 01/21/17 22:30 82 18 97 01/21/17 22:29 82 18 136/84 (101) 97 01/21/17 21:27 82 18 138/80 (99) 97 01/21/17 20:01 85 18 132/88 (103) 98 Nasal Cannula 3.00 01/21/17 17:46 98.5 73 18 164/88 (113) 97 Result Diagram: 01/22/1751801/21/172039 Other Results Laboratory Tests Test 01/21/17 20:40 Prothromb Time International Ratio 0.9 RATIO Prothrombin Time 10.0 SEC (9.8-11.6) Imaging Last 72 hours Impressions Tibia/Fibula X-Ray 01/21/17 0000 Signed Impressions: Service Date/Time: Saturday, January 21, 2017 18:29 - CONCLUSION: Fracture of the proximal fibula. Abhishek Rodríguez MD Ankle X-Ray 01/21/17 0000 Signed Impressions: Service Date/Time: Saturday, January 21, 2017 19:13 - CONCLUSION: Ankle fractures in fiberglass splint. Jude Rankin MD Objective Remarks Left lower extremity: No pain with hip range of motion., Tenderness distal to the knee laterally. Splint intact with intact sensation over all toes.. Good capillary refills Assessment & Plan Assessment and Plan Left proximal fibula fracture, posterior malleolus and syndesmosis rupture Nothing by mouth Sign consents Surgery this morning with Dr. Bragg. We'll plan on discharge to home if doing well with physical therapy and pain this afternoon Abhishek Lewis Jr. Jan 22, 2017 06:40
[2017-01-22] MEDS ORDERED: HYDR-3580 PO (06:42)
[2017-01-22] MEDS ORDERED: CALCTAB19 PO (06:42)
[2017-01-22] MEDS ORDERED: WALKER WHEELS/F1 MIS (06:42)
[2017-01-22 06:43] LABS: ALBUMIN 3.6 GM/DL (3.4-5.0); ALT (GPT) 27 U/L (12-78); AST (GOT) 23 U/L (15-37); BICARBONATE 29.9 MEQ/L (21.0-32.0); BLOOD UREA NITROGEN 13 MG/DL (7-18); CALCIUM 8.7 MG/DL (8.5-10.1); CHLORIDE 107 MEQ/L (98-107); CREATININE 0.97 MG/DL (0.60-1.30); GLOMERULAR FILTRATION RATE 81 ML/MIN (>89); GLUCOSE,RANDOM 103 MG/DL (74-106); SODIUM (NA) 142 MEQ/L (136-145)
[2017-01-22 06:45] LABS: ALKALINE PHOSPHATASE 60 U/L (45-117); TOTAL BILIRUBIN ADULT 0.6 MG/DL (0.2-1.0); TOTAL PROTEIN 6.8 GM/DL (6.4-8.2)
[2017-01-22] MEDS ORDERED: VANCOMYCIN HCL 1000 MG VIAL ONE (07:03)
[2017-01-22] MEDS ORDERED: GENTAMICIN SULFATE 80 MG/2 ML VIAL ONE (07:03)
[2017-01-22] MEDS ORDERED: ceFAZolin 2 GM PREMIX 0 ML ONE (07:03)
[2017-01-22] MEDS ORDERED: CLINDAMYCIN PHOS 600 MG/4 ML VIAL ONE (07:29)
[2017-01-22] MEDS ORDERED: ACETAMINOPHEN 1000 MG/100 ML 100 ML IV ONE (07:35)
--- NOTE | 2017-01-22 08:24 | PD.OP ---
cc: Mervin Kirkland MD Operative Report Date of Surgery: Jan 22, 2017 Preoperative Diagnosis: Left ankle trimalleolar fracture with syndesmosis disruption Postoperative Diagnosis: Procedure: Open reduction internal fixation left ankle posterior malleolus with syndesmosis repair Anesthesia: Gen. Surgeon: Mervin Kirkland Drum Maker(s): KIRAN Putnam PA-C The surgical procedure was assisted by my physician litigation assistant. My P.A. presence was necessary throughout this case for the manipulation and positioning of the surgical extremity. My P.A. was assisting me throughout the duration of this procedure. The skill set of a physician litigation assistant was medically necessary to complete this procedure. During the surgical case the medical surgical tech was working at the back table and the physician litigation assistant was directly assisting me. Operation and Findings: Patient was seen and evaluated preoperatively and found to have a displaced left ankle fracture. Informed consent was obtained after a detailed discussion of risk and benefits of surgery. The operative site was marked. Patient was brought to the OR, placed on the OR table, and given IV sedation and general endotracheal anesthesia. IV antibiotics were given preoperatively. A timeout procedure was performed. The left leg was prepped with alcohol followed by Hibiclens and draped in the usual sterile fashion. Attention was turned towards the distal fibula. The syndesmosis was stressed. There was clear widening of the syndesmosis with external rotation of the ankle. Patient had a high fibular shaft fracture. A 2 inch incision was made over the distal fibula at the level of the syndesmosis. The syndesmosis was now held in a reduced position with the ankle in neutral position. A 2 hole ITS plate was selected. Two 3.5 cortical screws were now placed through the fibula plate into the tibia. The syndesmosis was held in reduced position during screw placement Fluoroscopy confirmed appropriate screw placement with well-aligned syndesmosis. The fibular shaft fracture was visualized and found to be appropriately reduced. The fibula appeared to be out to length. The medial malleolus fragment was very small avulsion fracture. The fracture fragment was too small for internal fixation. At this point the posterior malleolus was visualized under fluoroscopy. A fracture tenaculum was placed around the posterior malleolus fragment. The posterior malleolus fragment was reduced. A small incision was made over the anterior tibia. A 3.5 cortical lag screw was placed from anterior to posterior. The posterior malleolus fragment was captured with the screw. The ankle was now examined and found to be stable under fluoroscopy. Incisions were thoroughly irrigated. The subcutaneous tissue was closed with 3-0 Vicryl and the skin was closed with 3-0 nylon. Sterile dressings were applied. The patient was transferred to Recovery in stable condition. Mervin Kirkland MD Jan 22, 2017 08:24
--- NOTE | 2017-01-22 08:24 | PD.OP ---
cc: Mervin Kirkland MD Operative Report Date of Surgery: Jan 22, 2017 Preoperative Diagnosis: Left ankle trimalleolar fracture with syndesmosis disruption Postoperative Diagnosis: Procedure: Open reduction internal fixation left ankle posterior malleolus with syndesmosis repair Anesthesia: Gen. Surgeon: Mervin Kirkland Scrap Metal Collector(s): KIRAN Putnam PA-C The surgical procedure was assisted by my physician lens assistant. My P.A. presence was necessary throughout this case for the manipulation and positioning of the surgical extremity. My P.A. was assisting me throughout the duration of this procedure. The skill set of a physician lens assistant was medically necessary to complete this procedure. During the surgical case the surgical assistant certified was working at the back table and the physician lens assistant was directly assisting me. Operation and Findings: Patient was seen and evaluated preoperatively and found to have a displaced left ankle fracture. Informed consent was obtained after a detailed discussion of risk and benefits of surgery. The operative site was marked. Patient was brought to the OR, placed on the OR table, and given IV sedation and general endotracheal anesthesia. IV antibiotics were given preoperatively. A timeout procedure was performed. The left leg was prepped with alcohol followed by Hibiclens and draped in the usual sterile fashion. Attention was turned towards the distal fibula. The syndesmosis was stressed. There was clear widening of the syndesmosis with external rotation of the ankle. Patient had a high fibular shaft fracture. A 2 inch incision was made over the distal fibula at the level of the syndesmosis. The syndesmosis was now held in a reduced position with the ankle in neutral position. A 2 hole ITS plate was selected. Two 3.5 cortical screws were now placed through the fibula plate into the tibia. The syndesmosis was held in reduced position during screw placement Fluoroscopy confirmed appropriate screw placement with well-aligned syndesmosis. The fibular shaft fracture was visualized and found to be appropriately reduced. The fibula appeared to be out to length. The medial malleolus fragment was very small avulsion fracture. The fracture fragment was too small for internal fixation. At this point the posterior malleolus was visualized under fluoroscopy. A fracture tenaculum was placed around the posterior malleolus fragment. The posterior malleolus fragment was reduced. A small incision was made over the anterior tibia. A 3.5 cortical lag screw was placed from anterior to posterior. The posterior malleolus fragment was captured with the screw. The ankle was now examined and found to be stable under fluoroscopy. Incisions were thoroughly irrigated. The subcutaneous tissue was closed with 3-0 Vicryl and the skin was closed with 3-0 nylon. Sterile dressings were applied. The patient was transferred to Recovery in stable condition. Mervin Kirkland MD Jan 22, 2017 08:24
--- NOTE | 2017-01-22 08:24 | PD.OP ---
cc: Mervin Kirkland MD Operative Report Date of Surgery: Jan 22, 2017 Preoperative Diagnosis: Left ankle trimalleolar fracture with syndesmosis disruption Postoperative Diagnosis: Procedure: Open reduction internal fixation left ankle posterior malleolus with syndesmosis repair Anesthesia: Gen. Surgeon: Mervin Kirkland Hide Puller(s): KIRAN Putnam PA-C The surgical procedure was assisted by my physician healthcare administrative assistant. My P.A. presence was necessary throughout this case for the manipulation and positioning of the surgical extremity. My P.A. was assisting me throughout the duration of this procedure. The skill set of a physician healthcare administrative assistant was medically necessary to complete this procedure. During the surgical case the neurosurgical physician assistant was working at the back table and the physician healthcare administrative assistant was directly assisting me. Operation and Findings: Patient was seen and evaluated preoperatively and found to have a displaced left ankle fracture. Informed consent was obtained after a detailed discussion of risk and benefits of surgery. The operative site was marked. Patient was brought to the OR, placed on the OR table, and given IV sedation and general endotracheal anesthesia. IV antibiotics were given preoperatively. A timeout procedure was performed. The left leg was prepped with alcohol followed by Hibiclens and draped in the usual sterile fashion. Attention was turned towards the distal fibula. The syndesmosis was stressed. There was clear widening of the syndesmosis with external rotation of the ankle. Patient had a high fibular shaft fracture. A 2 inch incision was made over the distal fibula at the level of the syndesmosis. The syndesmosis was now held in a reduced position with the ankle in neutral position. A 2 hole ITS plate was selected. Two 3.5 cortical screws were now placed through the fibula plate into the tibia. The syndesmosis was held in reduced position during screw placement Fluoroscopy confirmed appropriate screw placement with well-aligned syndesmosis. The fibular shaft fracture was visualized and found to be appropriately reduced. The fibula appeared to be out to length. The medial malleolus fragment was very small avulsion fracture. The fracture fragment was too small for internal fixation. At this point the posterior malleolus was visualized under fluoroscopy. A fracture tenaculum was placed around the posterior malleolus fragment. The posterior malleolus fragment was reduced. A small incision was made over the anterior tibia. A 3.5 cortical lag screw was placed from anterior to posterior. The posterior malleolus fragment was captured with the screw. The ankle was now examined and found to be stable under fluoroscopy. Incisions were thoroughly irrigated. The subcutaneous tissue was closed with 3-0 Vicryl and the skin was closed with 3-0 nylon. Sterile dressings were applied. The patient was transferred to Recovery in stable condition. Mervin Kirkland MD Jan 22, 2017 08:24
[2017-01-22] MEDS ORDERED: ceFAZolin 2 GM PREMIX 50 ML IV SCH (08:30)
[2017-01-22] MEDS ORDERED: ONDANSETRON HCL 4 MG/2 ML VIAL IVP PRN (08:30)
[2017-01-22] MEDS ORDERED: Post-op Orders (for Pharmacy) MISC XX ONE (08:30)
[2017-01-22] MEDS ORDERED: MORPHINE SULFATE 4 MG/ML INJ IV PUSH PRN (08:30)
[2017-01-22] MEDS ORDERED: DO NOT ADM ANY ANTICOAGULANT DRUGS PRN (08:39)
[2017-01-22] MEDS ORDERED: *morphine SULFATE 8 MG/ML PERIprocedure ONLY ONE (08:48)
[2017-01-22] MEDS: SODIUM CHLORIDE 0.9% FLUSH 10 ML FLUSH IV FLUSH SCH (09:00)
[2017-01-22] MEDS ORDERED: predniSONE 10 MG TAB PO SCH (09:00)
[2017-01-22 09:05] VITALS: BP 130/88; PULSE 75; TEMP 98.2; O2SAT 97
--- NOTE | 2017-01-22 09:09 | MB ---
cc: TERRELL WHITE DATE OF CONSULTATION: 01/22/2017 REASON FOR CONSULTATION: Left ankle fracture. CONSULTING PHYSICIAN Dr. Roberto Maddox. HISTORY Tanvir is a 51-year-old male who had a fall. He states he stepped off a curb and twisted his ankle. He has previously broken his ankle before. He felt immediate left ankle pain. He felt a pop. He was unable to stand or ambulate. He presented to the emergency room where x-rays revealed a displaced left ankle fracture. He is currently awake and alert on the orthopedic floor. PAST MEDICAL HISTORY ILLNESSES Sarcoidosis, hypertension, radiculopathy, anxiety, panic attacks, and agoraphobia. PAST SURGICAL HISTORY: Bilateral knee replacement. Bronchoscopies. Lumbar laminectomy. MEDICATIONS: Please see EMR for complete list of medications. This includes: 1. Lasix. 2. Oxygen. 3. Ventolin. 4. Albuterol. 5. Prednisone. 6. Gabapentin. 7. Xanax. ALLERGIES: GUAIFENESIN PENICILLIN FAMILY HISTORY: Positive of coronary artery disease in his brother. SOCIAL HISTORY: The patient quit smoking 18 years ago. He does not drink. He uses marijuana occasionally. REVIEW OF SYSTEMS The patient denies headache, visual changes, neck pain, chest pain, abdominal pain, nausea, vomiting or recent weight loss or numbness and tingling of the extremities. He denies fever or chills. He does have some shortness of breath. He complains of left ankle pain. PHYSICAL EXAMINATION The patient is a well-developed, well-nourished 51 year-old male in no acute distress. He is awake and alert. He is alert and oriented x3. He appears well-developed, well-nourished. Vital signs: Temperature 98.3, pulse 66, respirations 18, blood pressure 130/83, O2 sat 99% on 3 liters nasal cannula. Head: The patient is normocephalic. Pupils are equal. Neck: Soft, nontender. Trachea is midline. Abdomen: Soft, nontender, nondistended. Extremities: Examination of bilateral upper extremities reveals no obvious pain or deformity with shoulder, elbow or wrist motion. He has intact sensation in all fingers. He has good capillary refill in all fingers. Skin is intact. Sensation is intact in all fingers. Examination of the right leg reveals no pain with hip, knee or ankle motion. Skin is intact. Dorsalis pedis pulses palpable. Sensation is intact. Examination of left leg reveals no pain with hip or knee motion. He is diffusely tender around the ankle. Skin is intact. Sensation is intact in left foot. He has pain with any ankle motion. X-RAYS X-rays of left tibia and left ankle were reviewed. The patient has a distal fibula fracture, medial malleolus avulsion fracture, posterior malleolus fracture, as well as a fibular shaft fracture. There appears to be widening of the syndesmosis. IMPRESSION Left ankle fractures with possible syndesmosis disruption. PLAN Treatment options were discussed with the patient. At this point I would recommend open reduction internal fixation of left ankle with possible open reduction internal fixation of syndesmosis. The risk of surgery includes bleeding, infection, injury to arteries, nerves and blood vessels, nonunion, malunion, painful hardware, ankle stiffness, ankle arthritis, as well as medical complications including blood clot, stroke, heart attack and . All questions were answered. I will plan on surgery today. A mid-level provider in my office, nurse practitioner or PA, may see this patient on a follow-up basis and continue to implement the objective of this plan including: Starting or adjusting medications, injections of muscle, tendon, bursa or joints, cast application, orthotic or brace application, physical therapy, further radiographic studies including x-ray, MRI, CT, ultrasounds or bone scan, vascular studies, neurologic studies, or other specialist consultations, and proceeding with surgical management as appropriate. MD MALCOLM Mcbride/REGULO /6:47 AM /7:15 AM
--- NOTE | 2017-01-22 09:10 | RADRPT ---
EXAM DATE/TIME: 01/22/2017 07:57 [facility] COMPARISON: TIBIA/FIBULA LEFT (AP/LAT), January 21, 2017, 18:29. INDICATIONS : Open reduction. MEDICAL HISTORY : None. SURGICAL HISTORY : None. ENCOUNTER: Subsequent ACUITY: 2 days PAIN SCORE: Non-responsive. LOCATION: Left lateral FINDINGS: Hardware is noted within the distal tibia and fibula status post ORIF of the previously noted fractur es. The mildly displaced proximal fibular fracture is again noted. CONCLUSION: 1. Status post ORIF of ankle fracture with hardware in good position. 2. Stable mildly displaced proximal fibular fracture. Petr Lewis MD on January 22, 2017 at 9:04 Board Certified Radiologist. This report was verified electronically.
[2017-01-22] MEDS: GABAPENTIN 400 MG CAP PO SCH ×2 (09:44→13:04)
[2017-01-22] MEDS: ACETAMINOPHEN/HYDROcodone 325 MG/7.5 MG TAB PO PRN ×2 (09:45→13:04)
[2017-01-22 10:50] VITALS: RESP 16
--- NOTE | 2017-01-22 13:20 | HHI.DCPOC ---
Discharge Care Plan Diagnosis: (1) Fracture of proximal end of left fibula (2) Fracture of distal end of tibia Goals to Promote Your Health * To prevent worsening of your condition and complications * To maintain your health at the optimal level Directions to Meet Your Goals Take your medications as prescribed Follow your dietary instruction Follow activity as directed Keep your appointments as scheduled Take your immunizations and boosters as scheduled If your symptoms worsen call your PCP, if no PCP go to Urgent Care Center or Emergency Room Smoking is Dangerous to Your Health. Avoid second hand smoke Call the 24-hour hour crisis hotline for domestic abuse at Abhishek Martínez DO Jan 22, 2017 13:20
--- NOTE | 2017-01-22 13:20 | HHI.DCPOC ---
Discharge Care Plan Diagnosis: (1) Fracture of proximal end of left fibula (2) Fracture of distal end of tibia Goals to Promote Your Health * To prevent worsening of your condition and complications * To maintain your health at the optimal level Directions to Meet Your Goals Take your medications as prescribed Follow your dietary instruction Follow activity as directed Keep your appointments as scheduled Take your immunizations and boosters as scheduled If your symptoms worsen call your PCP, if no PCP go to Urgent Care Center or Emergency Room Smoking is Dangerous to Your Health. Avoid second hand smoke Call the 24-hour hour crisis hotline for domestic abuse at Abhishek Martínez DO Jan 22, 2017 13:20
--- NOTE | 2017-01-22 13:20 | HHI.DCPOC ---
Discharge Care Plan Diagnosis: (1) Fracture of proximal end of left fibula (2) Fracture of distal end of tibia Goals to Promote Your Health * To prevent worsening of your condition and complications * To maintain your health at the optimal level Directions to Meet Your Goals Take your medications as prescribed Follow your dietary instruction Follow activity as directed Keep your appointments as scheduled Take your immunizations and boosters as scheduled If your symptoms worsen call your PCP, if no PCP go to Urgent Care Center or Emergency Room Smoking is Dangerous to Your Health. Avoid second hand smoke Call the 24-hour hour crisis hotline for domestic abuse at Abhishek Martínez DO Jan 22, 2017 13:20
--- NOTE | 2017-01-22 13:21 | HHI.DCPOC ---
Discharge Care Plan Diagnosis: (1) Fracture of proximal end of left fibula Goals to Promote Your Health * To prevent worsening of your condition and complications * To maintain your health at the optimal level Directions to Meet Your Goals Take your medications as prescribed Follow your dietary instruction Follow activity as directed Keep your appointments as scheduled Take your immunizations and boosters as scheduled If your symptoms worsen call your PCP, if no PCP go to Urgent Care Center or Emergency Room Smoking is Dangerous to Your Health. Avoid second hand smoke Call the 24-hour hour crisis hotline for domestic abuse at Abhishek Martínez DO Jan 22, 2017 13:21
--- NOTE | 2017-01-22 13:21 | HHI.DCPOC ---
Discharge Care Plan Diagnosis: (1) Fracture of proximal end of left fibula Goals to Promote Your Health * To prevent worsening of your condition and complications * To maintain your health at the optimal level Directions to Meet Your Goals Take your medications as prescribed Follow your dietary instruction Follow activity as directed Keep your appointments as scheduled Take your immunizations and boosters as scheduled If your symptoms worsen call your PCP, if no PCP go to Urgent Care Center or Emergency Room Smoking is Dangerous to Your Health. Avoid second hand smoke Call the 24-hour hour crisis hotline for domestic abuse at Abhishek Martínez DO Jan 22, 2017 13:21
--- NOTE | 2017-01-22 13:21 | HHI.DCPOC ---
Discharge Care Plan Diagnosis: (1) Fracture of proximal end of left fibula Goals to Promote Your Health * To prevent worsening of your condition and complications * To maintain your health at the optimal level Directions to Meet Your Goals Take your medications as prescribed Follow your dietary instruction Follow activity as directed Keep your appointments as scheduled Take your immunizations and boosters as scheduled If your symptoms worsen call your PCP, if no PCP go to Urgent Care Center or Emergency Room Smoking is Dangerous to Your Health. Avoid second hand smoke Call the 24-hour hour crisis hotline for domestic abuse at Abhishek Martínez DO Jan 22, 2017 13:21
--- NOTE | 2017-01-22 13:25 | HHI.PR ---
Subjective Remarks The pt was ready to go home. Has been ambulating. He had questions about the surgery. His family was at the bedside. Discussed with nursing. Objective Vitals Vital Signs Date Time Temp Pulse Resp B/P (MAP) Pulse Ox O2 Delivery O2 Flow Rate FiO2 01/22/17 10:50 16 01/22/17 09:05 98.2 75 16 130/88 (102) 97 Nasal Cannula 3 01/22/17 09:00 82 16 130/92 (105) 96 Nasal Cannula 3 01/22/17 08:45 85 16 135/71 (92) 95 Nasal Cannula 3 01/22/17 08:35 97.9 86 17 132/64 (86) 98 Simple Mask 8 01/22/17 04:00 98.3 66 18 130/83 (99) 99 01/21/17 23:39 Nasal Cannula 3.00 01/21/17 23:05 97 Nasal Cannula 3.00 01/21/17 23:00 98.4 70 18 125/81 (96) 97 01/21/17 22:30 82 18 97 01/21/17 22:29 82 18 136/84 (101) 97 01/21/17 21:27 82 18 138/80 (99) 97 01/21/17 20:01 85 18 132/88 (103) 98 Nasal Cannula 3.00 01/21/17 17:46 98.5 73 18 164/88 (113) 97 I/O 01/21/17 01/21/17 01/21/17 01/22/17 01/22/17 01/22/17 07:00 15:00 23:00 07:00 15:00 23:00 Intake Total 400 ml Output Total 100 ml 50 ml Balance -100 ml 350 ml Intake IV Total 400 ml Output Urine Total 100 ml Estimated Blood Loss 50 ml # Voids 1 # Bowel Movements 0 Result Diagram: 01/22/1719 01/22/1719 Imaging Last Impressions Tibia/Fibula X-Ray 01/22/17 0000 Signed Impressions: Service Date/Time: Sunday, January 22, 2017 07:57 - CONCLUSION: 1. Status post ORIF of ankle fracture with hardware in good position. 2. Stable mildly displaced proximal fibular fracture. Petr Lewis MD Ankle X-Ray 01/21/17 0000 Signed Impressions: Service Date/Time: Saturday, January 21, 2017 19:13 - CONCLUSION: Ankle fractures in fiberglass splint. Jude Rankin MD Objective Remarks GENERAL: This is a well-nourished, well-developed patient, in no apparent distress. SKIN: No rashes, ecchymoses or lesions. Cool and dry. HEAD: Atraumatic. Normocephalic. No temporal or scalp tenderness. EYES: Pupils equal round and reactive. Extraocular motions intact. No scleral icterus. No injection or drainage. ENT: Nose without bleeding, purulent drainage or septal hematoma. Throat without erythema, tonsillar hypertrophy or exudate. Uvula midline. Airway patent. NECK: Trachea midline. No JVD or lymphadenopathy. Supple, nontender, no meningeal signs. CARDIOVASCULAR: Regular rate and rhythm without murmurs, gallops, or rubs. RESPIRATORY: Clear to auscultation. Breath sounds equal bilaterally. No wheezes , rales, or rhonchi. GASTROINTESTINAL: Abdomen soft, non-tender, nondistended. No hepato-splenomegaly , or palpable masses. No guarding. MUSCULOSKELETAL: Left leg bandaged. NEUROLOGICAL: Awake and alert. Cranial nerves II through XII intact. Motor and sensory grossly within normal limits. Five out of 5 muscle strength in all muscle groups. Normal speech. PSYCH: Mood and affect appropriate. Medications and IVs Current Medications Medications (Trade) Dose Ordered Sig/Zahida Route Start Time Stop Time Status Last Admin (NS Flush) 2 ml UNSCH PRN IV FLUSH 01/21/17 20:30 (NS Flush) 2 ml BID IV FLUSH 01/21/17 21:00 01/22/17 09:00 (Narcan Inj) 0.4 mg UNSCH PRN IV PUSH 01/21/17 20:30 (Duoneb Neb) 1 ampule Q2HR NEB PRN NEB 01/21/17 20:30 01/21/17 23:39 Lactated Ringer's 1,000 ml @ 30 mls/hr Q24H PRN IV 01/22/17 01:00 01/25/17 00:59 Sodium Chloride 500 ml @ 30 mls/hr [id number] PRN IV 01/22/17 01:00 01/25/17 00:59 (Betadine 5% Antisepsis Kit) 1 applic DIRECTOR ACUTE PRN EACH NARE 01/22/17 01:00 01/25/17 00:59 (Chlorhexidine 2% Cloth) 3 pack DIRECTOR ACUTE PRN TOPICAL 01/22/17 01:00 01/25/17 00:59 (NovoLIN R INJ) See Protocol Table ... DIRECTOR ACUTE PRN SQ 01/22/17 01:00 01/25/17 00:59 (Proair Hfa Inh) 2 puff Q4HR PRN INH 01/22/17 03:00 (Albuterol Neb) 2.5 mg Q4HR NEB PRN NEB 01/22/17 03:00 (Deltasone) 15 mg DAILY PO 01/22/17 09:00 01/22/17 09:45 (Neurontin) 400 mg TID PO 01/22/17 09:00 01/22/17 13:04 (Zofran Inj) 4 mg Q4H PRN IVP 01/22/17 08:30 (Morphine Inj) 4 mg Q3H PRN IV PUSH 01/22/17 08:30 ([place] 7.5-325 Mg) 1 tab Q3H PRN PO 01/22/17 08:30 01/22/17 13:04 Miscellaneous Information ALL NURSING DEPARTME... UNSCH PRN .XX 01/22/17 08:39 01/23/17 08:38 A/P Assessment and Plan //Left fibula fracture //Suspected osteoporosis due to fracture from a ground-level fall -Plan per orthopedics. Appreciate assistance. S/p ORIF. Cleared for d/c. - pain control. - calcium and vit D upon discharge. - follow up with ortho as an outpt. //History of sarcoidosis. Stable on 3 L oxygen. Nebs as necessary. Continue to monitor. - continue home oxygen. //Adrenal insufficiency. Patient has been on chronic prednisone over 10 mg for many months. Continue prednisone. //Occasional marijuana use. Patient counseled against use. //Radiculopathy. Patient is on gabapentin 600 mg 3 times daily. Continue at 400 mg 3 times a day.. //Chronic bilateral lower extremity edema. - resume home meds. //Prophylaxis. As per surgical service. Discharge Planning D/c home with Abhishek Gayle DO Jan 22, 2017 13:25
--- NOTE | 2017-01-22 13:25 | HHI.PR ---
Subjective Remarks The pt was ready to go home. Has been ambulating. He had questions about the surgery. His family was at the bedside. Discussed with nursing. Objective Vitals Vital Signs Date Time Temp Pulse Resp B/P (MAP) Pulse Ox O2 Delivery O2 Flow Rate FiO2 01/22/17 10:50 16 01/22/17 09:05 98.2 75 16 130/88 (102) 97 Nasal Cannula 3 01/22/17 09:00 82 16 130/92 (105) 96 Nasal Cannula 3 01/22/17 08:45 85 16 135/71 (92) 95 Nasal Cannula 3 01/22/17 08:35 97.9 86 17 132/64 (86) 98 Simple Mask 8 01/22/17 04:00 98.3 66 18 130/83 (99) 99 01/21/17 23:39 Nasal Cannula 3.00 01/21/17 23:05 97 Nasal Cannula 3.00 01/21/17 23:00 98.4 70 18 125/81 (96) 97 01/21/17 22:30 82 18 97 01/21/17 22:29 82 18 136/84 (101) 97 01/21/17 21:27 82 18 138/80 (99) 97 01/21/17 20:01 85 18 132/88 (103) 98 Nasal Cannula 3.00 01/21/17 17:46 98.5 73 18 164/88 (113) 97 I/O 01/21/17 01/21/17 01/21/17 01/22/17 01/22/17 01/22/17 07:00 15:00 23:00 07:00 15:00 23:00 Intake Total 400 ml Output Total 100 ml 50 ml Balance -100 ml 350 ml Intake IV Total 400 ml Output Urine Total 100 ml Estimated Blood Loss 50 ml # Voids 1 # Bowel Movements 0 Result Diagram: 01/22/1719 01/22/1719 Imaging Last Impressions Tibia/Fibula X-Ray 01/22/17 0000 Signed Impressions: Service Date/Time: Sunday, January 22, 2017 07:57 - CONCLUSION: 1. Status post ORIF of ankle fracture with hardware in good position. 2. Stable mildly displaced proximal fibular fracture. Petr Lewis MD Ankle X-Ray 01/21/17 0000 Signed Impressions: Service Date/Time: Saturday, January 21, 2017 19:13 - CONCLUSION: Ankle fractures in fiberglass splint. Jude Rankin MD Objective Remarks GENERAL: This is a well-nourished, well-developed patient, in no apparent distress. SKIN: No rashes, ecchymoses or lesions. Cool and dry. HEAD: Atraumatic. Normocephalic. No temporal or scalp tenderness. EYES: Pupils equal round and reactive. Extraocular motions intact. No scleral icterus. No injection or drainage. ENT: Nose without bleeding, purulent drainage or septal hematoma. Throat without erythema, tonsillar hypertrophy or exudate. Uvula midline. Airway patent. NECK: Trachea midline. No JVD or lymphadenopathy. Supple, nontender, no meningeal signs. CARDIOVASCULAR: Regular rate and rhythm without murmurs, gallops, or rubs. RESPIRATORY: Clear to auscultation. Breath sounds equal bilaterally. No wheezes , rales, or rhonchi. GASTROINTESTINAL: Abdomen soft, non-tender, nondistended. No hepato-splenomegaly , or palpable masses. No guarding. MUSCULOSKELETAL: Left leg bandaged. NEUROLOGICAL: Awake and alert. Cranial nerves II through XII intact. Motor and sensory grossly within normal limits. Five out of 5 muscle strength in all muscle groups. Normal speech. PSYCH: Mood and affect appropriate. Medications and IVs Current Medications Medications (Trade) Dose Ordered Sig/Zahida Route Start Time Stop Time Status Last Admin (NS Flush) 2 ml UNSCH PRN IV FLUSH 01/21/17 20:30 (NS Flush) 2 ml BID IV FLUSH 01/21/17 21:00 01/22/17 09:00 (Narcan Inj) 0.4 mg UNSCH PRN IV PUSH 01/21/17 20:30 (Duoneb Neb) 1 ampule Q2HR NEB PRN NEB 01/21/17 20:30 01/21/17 23:39 Lactated Ringer's 1,000 ml @ 30 mls/hr Q24H PRN IV 01/22/17 01:00 01/25/17 00:59 Sodium Chloride 500 ml @ 30 mls/hr [id number] PRN IV 01/22/17 01:00 01/25/17 00:59 (Betadine 5% Antisepsis Kit) 1 applic CORRECTIONS CASEWORKER PRN EACH NARE 01/22/17 01:00 01/25/17 00:59 (Chlorhexidine 2% Cloth) 3 pack CORRECTIONS CASEWORKER PRN TOPICAL 01/22/17 01:00 01/25/17 00:59 (NovoLIN R INJ) See Protocol Table ... CORRECTIONS CASEWORKER PRN SQ 01/22/17 01:00 01/25/17 00:59 (Proair Hfa Inh) 2 puff Q4HR PRN INH 01/22/17 03:00 (Albuterol Neb) 2.5 mg Q4HR NEB PRN NEB 01/22/17 03:00 (Deltasone) 15 mg DAILY PO 01/22/17 09:00 01/22/17 09:45 (Neurontin) 400 mg TID PO 01/22/17 09:00 01/22/17 13:04 (Zofran Inj) 4 mg Q4H PRN IVP 01/22/17 08:30 (Morphine Inj) 4 mg Q3H PRN IV PUSH 01/22/17 08:30 ([place] 7.5-325 Mg) 1 tab Q3H PRN PO 01/22/17 08:30 01/22/17 13:04 Miscellaneous Information ALL NURSING DEPARTME... UNSCH PRN .XX 01/22/17 08:39 01/23/17 08:38 A/P Assessment and Plan //Left fibula fracture //Suspected osteoporosis due to fracture from a ground-level fall -Plan per orthopedics. Appreciate assistance. S/p ORIF. Cleared for d/c. - pain control. - calcium and vit D upon discharge. - follow up with ortho as an outpt. //History of sarcoidosis. Stable on 3 L oxygen. Nebs as necessary. Continue to monitor. - continue home oxygen. //Adrenal insufficiency. Patient has been on chronic prednisone over 10 mg for many months. Continue prednisone. //Occasional marijuana use. Patient counseled against use. //Radiculopathy. Patient is on gabapentin 600 mg 3 times daily. Continue at 400 mg 3 times a day.. //Chronic bilateral lower extremity edema. - resume home meds. //Prophylaxis. As per surgical service. Discharge Planning D/c home with Abhishek Gayle DO Jan 22, 2017 13:25
--- NOTE | 2017-01-22 13:25 | HHI.PR ---
Subjective Remarks The pt was ready to go home. Has been ambulating. He had questions about the surgery. His family was at the bedside. Discussed with nursing. Objective Vitals Vital Signs Date Time Temp Pulse Resp B/P (MAP) Pulse Ox O2 Delivery O2 Flow Rate FiO2 01/22/17 10:50 16 01/22/17 09:05 98.2 75 16 130/88 (102) 97 Nasal Cannula 3 01/22/17 09:00 82 16 130/92 (105) 96 Nasal Cannula 3 01/22/17 08:45 85 16 135/71 (92) 95 Nasal Cannula 3 01/22/17 08:35 97.9 86 17 132/64 (86) 98 Simple Mask 8 01/22/17 04:00 98.3 66 18 130/83 (99) 99 01/21/17 23:39 Nasal Cannula 3.00 01/21/17 23:05 97 Nasal Cannula 3.00 01/21/17 23:00 98.4 70 18 125/81 (96) 97 01/21/17 22:30 82 18 97 01/21/17 22:29 82 18 136/84 (101) 97 01/21/17 21:27 82 18 138/80 (99) 97 01/21/17 20:01 85 18 132/88 (103) 98 Nasal Cannula 3.00 01/21/17 17:46 98.5 73 18 164/88 (113) 97 I/O 01/21/17 01/21/17 01/21/17 01/22/17 01/22/17 01/22/17 07:00 15:00 23:00 07:00 15:00 23:00 Intake Total 400 ml Output Total 100 ml 50 ml Balance -100 ml 350 ml Intake IV Total 400 ml Output Urine Total 100 ml Estimated Blood Loss 50 ml # Voids 1 # Bowel Movements 0 Result Diagram: 01/22/1719 01/22/1719 Imaging Last Impressions Tibia/Fibula X-Ray 01/22/17 0000 Signed Impressions: Service Date/Time: Sunday, January 22, 2017 07:57 - CONCLUSION: 1. Status post ORIF of ankle fracture with hardware in good position. 2. Stable mildly displaced proximal fibular fracture. Petr Lewis MD Ankle X-Ray 01/21/17 0000 Signed Impressions: Service Date/Time: Saturday, January 21, 2017 19:13 - CONCLUSION: Ankle fractures in fiberglass splint. Jude Rankin MD Objective Remarks GENERAL: This is a well-nourished, well-developed patient, in no apparent distress. SKIN: No rashes, ecchymoses or lesions. Cool and dry. HEAD: Atraumatic. Normocephalic. No temporal or scalp tenderness. EYES: Pupils equal round and reactive. Extraocular motions intact. No scleral icterus. No injection or drainage. ENT: Nose without bleeding, purulent drainage or septal hematoma. Throat without erythema, tonsillar hypertrophy or exudate. Uvula midline. Airway patent. NECK: Trachea midline. No JVD or lymphadenopathy. Supple, nontender, no meningeal signs. CARDIOVASCULAR: Regular rate and rhythm without murmurs, gallops, or rubs. RESPIRATORY: Clear to auscultation. Breath sounds equal bilaterally. No wheezes , rales, or rhonchi. GASTROINTESTINAL: Abdomen soft, non-tender, nondistended. No hepato-splenomegaly , or palpable masses. No guarding. MUSCULOSKELETAL: Left leg bandaged. NEUROLOGICAL: Awake and alert. Cranial nerves II through XII intact. Motor and sensory grossly within normal limits. Five out of 5 muscle strength in all muscle groups. Normal speech. PSYCH: Mood and affect appropriate. Medications and IVs Current Medications Medications (Trade) Dose Ordered Sig/Zahida Route Start Time Stop Time Status Last Admin (NS Flush) 2 ml UNSCH PRN IV FLUSH 01/21/17 20:30 (NS Flush) 2 ml BID IV FLUSH 01/21/17 21:00 01/22/17 09:00 (Narcan Inj) 0.4 mg UNSCH PRN IV PUSH 01/21/17 20:30 (Duoneb Neb) 1 ampule Q2HR NEB PRN NEB 01/21/17 20:30 01/21/17 23:39 Lactated Ringer's 1,000 ml @ 30 mls/hr Q24H PRN IV 01/22/17 01:00 01/25/17 00:59 Sodium Chloride 500 ml @ 30 mls/hr [id number] PRN IV 01/22/17 01:00 01/25/17 00:59 (Betadine 5% Antisepsis Kit) 1 applic FENCE MAKING MACHINE OPERATOR PRN EACH NARE 01/22/17 01:00 01/25/17 00:59 (Chlorhexidine 2% Cloth) 3 pack FENCE MAKING MACHINE OPERATOR PRN TOPICAL 01/22/17 01:00 01/25/17 00:59 (NovoLIN R INJ) See Protocol Table ... FENCE MAKING MACHINE OPERATOR PRN SQ 01/22/17 01:00 01/25/17 00:59 (Proair Hfa Inh) 2 puff Q4HR PRN INH 01/22/17 03:00 (Albuterol Neb) 2.5 mg Q4HR NEB PRN NEB 01/22/17 03:00 (Deltasone) 15 mg DAILY PO 01/22/17 09:00 01/22/17 09:45 (Neurontin) 400 mg TID PO 01/22/17 09:00 01/22/17 13:04 (Zofran Inj) 4 mg Q4H PRN IVP 01/22/17 08:30 (Morphine Inj) 4 mg Q3H PRN IV PUSH 01/22/17 08:30 ([place] 7.5-325 Mg) 1 tab Q3H PRN PO 01/22/17 08:30 01/22/17 13:04 Miscellaneous Information ALL NURSING DEPARTME... UNSCH PRN .XX 01/22/17 08:39 01/23/17 08:38 A/P Assessment and Plan //Left fibula fracture //Suspected osteoporosis due to fracture from a ground-level fall -Plan per orthopedics. Appreciate assistance. S/p ORIF. Cleared for d/c. - pain control. - calcium and vit D upon discharge. - follow up with ortho as an outpt. //History of sarcoidosis. Stable on 3 L oxygen. Nebs as necessary. Continue to monitor. - continue home oxygen. //Adrenal insufficiency. Patient has been on chronic prednisone over 10 mg for many months. Continue prednisone. //Occasional marijuana use. Patient counseled against use. //Radiculopathy. Patient is on gabapentin 600 mg 3 times daily. Continue at 400 mg 3 times a day.. //Chronic bilateral lower extremity edema. - resume home meds. //Prophylaxis. As per surgical service. Discharge Planning D/c home with Abhishek Gayle DO Jan 22, 2017 13:25
--- NOTE | 2017-01-22 20:42 | EKG ---
Date Performed: 01/22/2017 Time Performed: 01:18:24 PTAGE: 51 years EKG: Sinus rhythm Lateral T wave changes are nonspecific Borderline ECG NO PREVIOUS TRACING DOCTOR: River Reed Interpretating Date/Time 01/22/2017 20:39:13
== END 2017-01-22 13:59 | disposition home or self-care (01) | DRG 493 ==
LOC: PHED 17:35 → PHEDA 20:16 → N06B 22:53
PROVIDERS: ADMIT Hospitalist; ATTEND Hospitalist
PROC: 0MQR0ZZ Repair Left Ankle Bursa and Ligament, Open Approach (ICD-10-PCS; 2017-01-22)
PROC: 0QSH04Z Reposition Left Tibia with Internal Fixation Device, Open Approach (ICD-10-PCS; principal; 2017-01-22 07:30)
DX: S82.852A Displaced trimalleolar fracture of left lower leg, initial encounter for closed fracture (principal); E27.40 Unspecified adrenocortical insufficiency; Z99.81 Dependence on supplemental oxygen; I10 Essential (primary) hypertension; D86.9 Sarcoidosis, unspecified; S93.432A Sprain of tibiofibular ligament of left ankle, initial encounter; W10.1XXA Fall (on)(from) sidewalk curb, initial encounter; Y92.410 Unspecified street and highway as the place of occurrence of the external cause; Z87.01 Personal history of pneumonia (recurrent); M54.10 Radiculopathy, site unspecified; F41.0 Panic disorder [episodic paroxysmal anxiety]; F40.00 Agoraphobia, unspecified; Z96.653 Presence of artificial knee joint, bilateral; Z87.891 Personal history of nicotine dependence; E78.00 Pure hypercholesterolemia, unspecified; F12.90 Cannabis use, unspecified, uncomplicated; Z79.52 Long term (current) use of systemic steroids; Z79.899 Other long term (current) drug therapy; M19.90 Unspecified osteoarthritis, unspecified site
CPT/HCPCS: 73590; 73610; 76000; 80053; 82306; 85025; 85610; 85730; 90471; 90714; 93005; 94150; 94664; 96372; E0113; J0131; J0690; J1580; J1720; J2270; J2550; J3370; J7512

== ENCOUNTER 2017-05-02 09:51 | Emergency (ER) | payer OTHER ==
[~2017-05-02] VITALS: Ht 177.8 cm; Wt 111.0 kg
[~2017-05-02 09:51] MED LIST changes: +CALCTAB19 PO; +HYDR-3580 PO; +OXYGENDME NAS.CANULA; +WALKER WHEELS/F1 MIS; -ZITH500T PO
[2017-05-02 10:01] VITALS: BP 142/87; PULSE 86; RESP 22; TEMP 98.4; O2SAT 98
[2017-05-02] MEDS ORDERED: LORA1TAB12 PO (10:23)
[2017-05-02] MEDS ORDERED: TIZA2CAP3 PO (10:23)
--- NOTE | 2017-05-02 10:52 | PD ---
HPI Chief Complaint: Pain: Acute or Chronic Time Seen by Provider: 10:33 Travel History International Travel<30 days: No Contact w/Intl Traveler<30days: No Traveled to known affect area: No History of Present Illness HPI Patient comes to the emergency department complaining of left ankle pain that began 4 days ago. Patient describes aching/burning pain over the medial aspect of his ankle that radiates proximally aggravating his sciatica. Patient reports he has had previous fracture and surgery on the ankle. Patient reports using ice, heat, and ankle braces with minimal to no improvement of symptoms. Pain is worse with walking. [facility]. PFSH Past Medical History Hx Anticoagulant Therapy: No Arthritis: Yes Asthma: No Autoimmune Disease: No Anxiety: Yes Depression: No Heart Rhythm Problems: No Cancer: No Cardiovascular Problems: Yes High Cholesterol: Yes Chemotherapy: No Chest Pain: No Congestive Heart Failure: No COPD: No Cerebrovascular Accident: No Diabetes: No Diminished Hearing: No Endocrine: No Gastrointestinal Disorders: No GERD: Yes Genitourinary: Yes Headaches: No Hiatal Hernia: No Hypertension: Yes Immune Disorder: No Implanted Vascular Access Dvce: No Kidney Stones: No Musculoskeletal: Yes Neurologic: Yes Psychiatric: Yes Reproductive: No Respiratory: Yes (SARCOIDOSIS, PNA) Migraines: No Pneumonia: Yes Radiation Therapy: No Renal Failure: No Seizures: No Sickle Cell Disease: No Sleep Apnea: No Thyroid Disease: No Ulcer: No Past Surgical History Abdominal Surgery: No AICD: No Arteriovenous Shunt: No Cardiac Surgery: No Ear Surgery: No Endocrine Surgery: No Eye Surgery: No Genitourinary Surgery: No Gynecologic Surgery: No Insulin Pump: No Joint Replacement: No Neurologic Surgery: Yes (laminectomy) Oral Surgery: No Pacemaker: No Thoracic Surgery: Yes (BRONCHOSCOPY R/T PNA) Other Surgery: Yes ([id number]) Social History Alcohol Use: No Tobacco Use: No (QUIT AGE 31) Substance Use: Yes (RARE MARIJUANA USE) Allergies-Medications (Allergen,Severity, Reaction): Coded Allergies: guaifenesin (Unverified Allergy, Severe, Shortness of Breath, 05/02/17) "STOPPED MY BREATHING" penicillin G (Unverified Allergy, Severe, Hives, 05/02/17) Reported Meds & Prescriptions Reported Meds & Active Scripts Active Tramadol (Tramadol HCl) 50 Mg Tab 50 Mg PO Q8H PRN Calcium 600+D 200 (Calcium Carbonate-Vitamin D) 600-200 Mg-Unit Tab 1 Tab PO BID Hydrocodone-Acetaminophen 7.5-325 mg Tab 1 Tab PO Q4H PRN Furosemide 20 Mg Tab 20 Mg PO DAILY Reported Tizanidine (Tizanidine HCl) 2 Mg Cap Unknown Dose PO TID Lorazepam 1 Mg Tab 1 Mg PO BID Oxygen (O2) Device Liter REGULO.CANULA CONTINUOUS Oxygen Concentrator Portable Gaseous 2 L/min via Nasal Canula Continuous For 99 months Ventolin Hfa 18 GM Inh (Albuterol Sulfate) 90 Mcg/Act Aer 2 Puff INH Q4-6H PRN Albuterol Neb (Albuterol Sulfate) 2.5 Mg/3 Ml Neb 2.5 Mg NEB Q4HR NEB PRN Prednisone 10 Mg Tab 15 Mg PO DAILY Gabapentin 600 Mg Tab 600 Mg PO TID Xanax (Alprazolam) 1 Mg Tab 1 Mg PO TID Review of Systems Except as stated in HPI: all other systems reviewed are Neg Physical Exam Narrative GENERAL: Well-developed, overly nourished, in no acute distress, and non-ill appearing. SKIN: Focused skin assessment warm and dry. HEAD: Atraumatic. Normocephalic. EYES: Pupils equal and round. EOMI. No scleral icterus. No injection or drainage. ENT: No nasal bleeding or discharge. Mucous membranes pink and moist. NECK: Trachea midline. Supple. No nuclear rigidity. CARDIOVASCULAR: Dorsal pulses 2+, intact, and equal bilaterally. Capillary refill less than 2 seconds. RESPIRATORY: No accessory muscle use. No respiratory distress. MUSCULOSKELETAL: No obvious deformities. No clubbing. No cyanosis. No edema. Decreased range of motion of left ankle but patient reports is chronic since his surgery. Ankle: Neagative anterior draw and Salazar test. Negative Erin' s sign. No laxity noted with passive inversion and eversion of BL ankles. Negative squeeze test. Pulses equal BL distal to injury. Capillary refill less than 2 seconds distal to injury and equal BL. Sensation equal BL 1st web space. FROM of toes distal to injury and equal BL. NV intact distal to injury and equal BL. Dorsal pulses equal BL. Patient reports tenderness to palpation over medial aspect of left ankle proximal fibula states these are sights of previous fracture. No crepitus or signs of infection. NEUROLOGICAL: Awake and alert. No obvious cranial nerve deficits. Motor grossly within normal limits. Normal speech. PSYCHIATRIC: Appropriate mood and affect; insight and judgment normal. Data Data Last Documented VS Vital Signs Date Time Temp Pulse Resp B/P (MAP) Pulse Ox O2 Delivery O2 Flow Rate FiO2 05/02/17 10:01 98.4 86 22 142/87 (105) 98 Orders Orders Tibia/Fibula (Ap/Lat) (05/02/17 ) Ed Discharge Order (05/02/17 11:44) MDM Medical Decision Making Medical Screen Exam Complete: Yes Emergency Medical Condition: Yes Interpretation(s) Last Impressions Tibia/Fibula X-Ray 05/02/17 0000 Signed Impressions: Service Date/Time: Tuesday, May 02, 2017 10:53 - CONCLUSION: 1. No acute fracture or dislocation. 2. Incomplete healing of the left proximal fibular and medial malleolar fractures. 3. Probable bone infarct involving the left distal femur. Petr Lewis MD Differential Diagnosis Arthritis, fracture, chronic pain, other Narrative Course Patient in no obvious distress upon re-evaluation. All pertinent Radiology result(s) discussed with patient. Discussed patient with Dr. Ramos prior to discharge, who is in agreement with plan of care and disposition. Patient was asked if they wanted to speak to my attending, which the patient did not wish to do at this time. Any questions/concerns in reference to patient diagnosis/ condition discussed and clarified prior to patient's discharge. Reinforced sheer importance of close follow up with patient's primary physician or primary care clinic. Instructed patient to return to ED immediately, if symptoms return/ worsen. Patient showed understanding of above instructions. Further instructions and recommendations were detailed in discharge paperwork. Patient ambulated without difficulty out of ED at discharge. Diagnosis Primary Impression: Leg pain Qualified Codes: M79.605 - Pain in left leg Additional Impression: Probable left distal femur bone infarct Patient Instructions: General Instructions, Leg Pain (ED) Additional Instructions: Follow-up with your primary care physician and/or orthopedics this week for reevaluation. Take all medication as prescribed. Return to the emergency department if symptoms get worse. Med/Other Pt SpecificInfo: Prescription(s) given Scripts Tramadol (Tramadol) 50 Mg Tab 50 MG PO Q8H Y for PAIN GREATER THAN 7, #9 TAB 0 Refills Prov: Michael Velasco MD 05/02/17 Disposition: 01 DISCHARGE HOME Condition: Stable Adria Mitchell May 02, 2017 10:52
--- NOTE | 2017-05-02 11:17 | RADRPT ---
EXAM DATE/TIME: 05/02/2017 10:53 [facility] COMPARISON: TIBIA/FIBULA LEFT (AP/LAT), January 22, 2017, 7:57. INDICATIONS : Left ankle pain & swelling x 4 days with no recent injury. MEDICAL HISTORY : Hypercholesterolemia. Arthritis. Gastroesophageal reflux disease. Sarcoidosis. Pneumonia. Hyperte nsion. Fractures to left tib/fib/ankle 12/2016. SURGICAL HISTORY : Laminectomy. Bronchoscopy. Bialateral knee arthroscopy. ORIF left ankle. ENCOUNTER: Initial ACUITY: 4 - 6 days PAIN SCORE: 7/10 LOCATION: Left ankle FINDINGS: Hardware is stable within the left distal tibia and fibula. There is incomplete healing of the medial malleolar fracture. There is also incomplete healing of the left proximal fibular fracture. Probable bone infarct is noted involving the left distal femur. No acute fracture or dislocation is noted. CONCLUSION: 1. No acute fracture or dislocation. 2. Incomplete healing of the left proximal fibular and medial malleolar fractures. 3. Probable bone infarct involving the left distal femur. Petr Lewis MD on May 02, 2017 at 11:09 Board Certified Radiologist. This report was verified electronically.
[2017-05-02] MEDS ORDERED: TRAM50TA PO (11:46)
== END 2017-05-02 11:59 | disposition home or self-care (01) ==
LOC: PHEFT 09:51
DX: M79.605 Pain in left leg (principal); I10 Essential (primary) hypertension
CPT/HCPCS: 73590; 99283

== ENCOUNTER 2017-06-11 03:38 | Emergency (ER) | payer OTHER ==
[~2017-06-11] VITALS: Ht 172.7 cm; Wt 111.0 kg
[~2017-06-11 03:38] MED LIST changes: +LORA1TAB12 PO; +TIZA2CAP3 PO; +TRAM50TA PO; -WALKER WHEELS/F1 MIS
[2017-06-11] MEDS ORDERED: SODIUM CHLORIDE 0.9% FLUSH 10 ML FLUSH IVF PRN (03:45)
[2017-06-11 03:49] VITALS: RESP 20
[2017-06-11 03:50] VITALS: BP 114/68; PULSE 111; RESP 22; TEMP 100.4; O2SAT 97
[2017-06-11 03:57] VITALS: BP 117/69; PULSE 111; RESP 20; TEMP 100.4; O2SAT 98
[2017-06-11] MEDS ORDERED: RESP: ALBUTEROL 2.5 MG/IPRATROPIUM 0.5 MG NEB (SCH) NEB ONE (04:00)
--- NOTE | 2017-06-11 04:04 | PD ---
HPI Chief Complaint: Chest Pain Time Seen by Provider: 03:58 Travel History International Travel<30 days: No Contact w/Intl Traveler<30days: No Traveled to known affect area: No History of Present Illness HPI Patient is a 52-year-old male with a history of rheumatologic disease presents emergency department for evaluation of cough congestion shortness of breath. Patient states is having some uncomfortable chest sensation when he coughs but no chest tightness. Patient states been taking his inhalers at home but thinks he might have a pneumonia. Found to be febrile on arrival, states symptoms for the past 2-3 days, gradually worsening, context as above, not associated with any nausea vomiting diarrhea abdominal pain headache. PFSH Past Medical History Hx Anticoagulant Therapy: No Arthritis: Yes Asthma: No Autoimmune Disease: No Anxiety: Yes Depression: No Heart Rhythm Problems: No Cancer: No Cardiovascular Problems: Yes High Cholesterol: Yes Chemotherapy: No Chest Pain: No Congestive Heart Failure: No COPD: No Cerebrovascular Accident: No Diabetes: No Diminished Hearing: No Endocrine: No Gastrointestinal Disorders: No GERD: Yes Genitourinary: Yes Headaches: No Hiatal Hernia: No Hypertension: Yes Immune Disorder: No Implanted Vascular Access Dvce: No Kidney Stones: No Musculoskeletal: Yes Neurologic: Yes Psychiatric: Yes Reproductive: No Respiratory: Yes Immunizations Current: Yes Migraines: No Pneumonia: Yes Radiation Therapy: No Renal Failure: No Seizures: No Sickle Cell Disease: No Sleep Apnea: No Thyroid Disease: No Ulcer: No Tetanus Vaccination: < 5 Years Influenza Vaccination: Yes Past Surgical History Abdominal Surgery: No AICD: No Arteriovenous Shunt: No Cardiac Surgery: No Ear Surgery: No Endocrine Surgery: No Eye Surgery: No Genitourinary Surgery: No Gynecologic Surgery: No Insulin Pump: No Joint Replacement: No Neurologic Surgery: Yes (laminectomy) Oral Surgery: No Pacemaker: No Thoracic Surgery: Yes (BRONCHOSCOPY R/T PNA) Other Surgery: Yes ([id number]) Social History Alcohol Use: No Tobacco Use: No (QUIT AGE 31) Substance Use: Yes (RARE MARIJUANA USE) Allergies-Medications (Allergen,Severity, Reaction): Coded Allergies: guaifenesin (Unverified Allergy, Severe, Shortness of Breath, 05/02/17) "STOPPED MY BREATHING" penicillin G (Unverified Allergy, Severe, Hives, 05/02/17) Reported Meds & Prescriptions Reported Meds & Active Scripts Active Azithromycin 250 Mg Tab 250 Mg PO DIRECTED Take 2 tabs (500 mg) on day 1 then 1 tab daily x 4 days. Prednisone 20 Mg Tab 60 Mg PO DAILY 5 Days Calcium 600+D 200 (Calcium Carbonate-Vitamin D) 600-200 Mg-Unit Tab 1 Tab PO BID Furosemide 20 Mg Tab 20 Mg PO DAILY Reported Oxygen (O2) Device Liter REGULO.CANULA CONTINUOUS Oxygen Concentrator Portable Gaseous 2 L/min via Nasal Canula Continuous For 99 months Ventolin Hfa 18 GM Inh (Albuterol Sulfate) 90 Mcg/Act Aer 2 Puff INH Q4-6H PRN Albuterol Neb (Albuterol Sulfate) 2.5 Mg/3 Ml Neb 2.5 Mg NEB Q4HR NEB PRN Prednisone 10 Mg Tab 15 Mg PO DAILY Gabapentin 600 Mg Tab 600 Mg PO TID Review of Systems Except as stated in HPI: all other systems reviewed are Neg Physical Exam Narrative GENERAL: Well-developed, overweight in no obvious distress peer SKIN: Focused skin assessment warm/dry. HEAD: Atraumatic. Normocephalic. EYES: Pupils equal and round. No scleral icterus. No injection or drainage. ENT: No nasal bleeding or discharge. Mucous membranes pink and moist. NECK: Trachea midline. No JVD. CARDIOVASCULAR: Regular rate and rhythm. No murmur appreciated. RESPIRATORY: No accessory muscle use. Clear to auscultation. Breath sounds equal bilaterally. Mildly tachypneic but no accessory muscle use. GASTROINTESTINAL: Abdomen soft, non-tender, nondistended. Hepatic and splenic margins not palpable. MUSCULOSKELETAL: No obvious deformities. No clubbing. No cyanosis. No edema. NEUROLOGICAL: Awake and alert. No obvious cranial nerve deficits. Motor grossly within normal limits. Normal speech. PSYCHIATRIC: Appropriate mood and affect; insight and judgment normal. Data Data Last Documented VS Vital Signs Date Time Temp Pulse Resp B/P (MAP) Pulse Ox O2 Delivery O2 Flow Rate FiO2 06/11/17 08:23 06/11/17 08:00 82 19 98 Nasal Cannula 2.00 Orders Orders Electrocardiogram (06/11/17 03:45) Ckmb (Isoenzyme) Profile (06/11/17 03:45) Complete Blood Count With Diff (06/11/17 03:45) Comprehensive Metabolic Panel (06/11/17 03:45) Magnesium (Mg) (06/11/17 03:45) Prothrombin Time / Inr (Pt) (06/11/17 03:45) Act Partial Throm Time (Ptt) (06/11/17 03:45) Troponin I (06/11/17 03:45) Ecg Monitoring (06/11/17 03:45) Iv Access Insert/Monitor (06/11/17 03:45) Oximetry (06/11/17 03:45) Oxygen Administration (06/11/17 03:45) Sodium Chloride 0.9% Flush (Ns Flush) (06/11/17 03:45) Lactic Acid (06/11/17 03:58) Blood Culture (06/11/17 03:58) Chest, Single Ap (06/11/17 ) Albuterol-Ipratropium Neb (Duoneb Neb) (06/11/17 04:00) CKMB (06/11/17 03:55) CKMB% (06/11/17 03:55) Urinalysis - C+S If Indicated (06/11/17 05:31) Influenzae A/B Antigen (06/11/17 05:31) Ed Discharge Order (06/11/17 07:57) Labs Laboratory Tests Test 06/11/17 03:55 06/11/17 04:10 06/11/17 06:25 White Blood Count 9.0 TH/MM3 Red Blood Count 4.64 MIL/MM3 Hemoglobin 14.3 GM/DL Hematocrit 40.9 % Mean Corpuscular Volume 88.3 FL Mean Corpuscular Hemoglobin 30.9 PG Mean Corpuscular Hemoglobin Concent 35.0 % Red Cell Distribution Width 14.2 % Platelet Count 147 TH/MM3 Mean Platelet Volume 8.7 FL Neutrophils (%) (Auto) 84.1 % Lymphocytes (%) (Auto) 6.1 % Monocytes (%) (Auto) 9.0 % Eosinophils (%) (Auto) 0.2 % Basophils (%) (Auto) 0.6 % Neutrophils # (Auto) 7.5 TH/MM3 Lymphocytes # (Auto) 0.5 TH/MM3 Monocytes # (Auto) 0.8 TH/MM3 Eosinophils # (Auto) 0.0 TH/MM3 Basophils # (Auto) 0.1 TH/MM3 CBC Comment DIFF FINAL Differential Comment Prothrombin Time 10.3 SEC Prothromb Time International Ratio 1.0 RATIO Activated Partial Thromboplast Time 27.9 SEC Blood Urea Nitrogen 13 MG/DL Creatinine 1.40 MG/DL Random Glucose 158 MG/DL Total Protein 7.2 GM/DL Albumin 3.9 GM/DL Calcium Level 8.3 MG/DL Magnesium Level 1.8 MG/DL Alkaline Phosphatase 87 U/L Aspartate Amino Transf (AST/SGOT) 27 U/L Alanine Aminotransferase (ALT/SGPT) 25 U/L Total Bilirubin 0.6 MG/DL Sodium Level 138 MEQ/L Potassium Level 3.7 MEQ/L Chloride Level 104 MEQ/L Carbon Dioxide Level 25.2 MEQ/L Anion Gap 9 MEQ/L Estimat Glomerular Filtration Rate 53 ML/MIN Total Creatine Kinase 143 U/L Creatine Kinase MB 0.8 NG/ML Troponin I LESS THAN 0.02 NG/ML Lactic Acid Level 1.0 mmol/L Urine Color YELLOW Urine Turbidity CLEAR Urine pH 7.0 Urine Specific [place] 1.010 Urine Protein NEG mg/dL Urine Glucose (UA) NEG mg/dL Urine Ketones NEG mg/dL Urine Occult Blood SMALL Urine Nitrite NEG Urine Bilirubin NEG Urine Urobilinogen LESS THAN 2.0 MG/DL Urine Leukocyte Esterase NEG Urine RBC 5 /hpf Microscopic Urinalysis Comment CULT NOT INDICATED MDM Medical Decision Making Medical Screen Exam Complete: Yes Emergency Medical Condition: Yes Interpretation(s) EKG shows normal sinus rhythm cardia, normal axis normal R-wave progression. No concerning ST segment changes. The normal EKG except for rate Differential Diagnosis Influenza, pneumonia, URI, bronchitis, ACS seems unlikely. Narrative Course Patient was roomed in the emergency department, he appears only minimal tachypneic but is febrile and tachycardic. My concern is for pneumonia with sepsis, workup has ensued influenza testing negative, total white count is 9.0 but with a left shift, UA negative, creatinine bili elevated to 1.4, lactic acid negative, troponin negative. Patient given DuoNeb, fluids, Tylenol. Temperature is normalizing, heart rate normalizing and he is feeling much better. I think that he certainly has a viral illness but given his history I think we should cover him for bronchitis and will be placed on azithromycin as well as prednisone burst. He is on prednisone at home. He is on home oxygen at home. He has been saturating well on his 2 L nasal cannula. I discussed that with his symptoms need to consider that his influenza test may be a false negative and I have recommended that he have Tamiflu and he states that he has had some people that he knows have very very adverse effects of Tamiflu and with his psychiatric illness he does not want to try it. I think this is reasonable to defer. Discussed with him symptomatic management return to ED criteria. He states he has an adequate supply of inhalers and nebulizers at home. He is stable for discharge Diagnosis Primary Impression: URI (upper respiratory infection) Med/Other Pt SpecificInfo: Prescription(s) given Scripts Azithromycin (Azithromycin) 250 Mg Tab 250 MG PO DIRECTED for Infection, #6 TAB 0 Refills Take 2 tabs (500 mg) on day 1 then 1 tab daily x 4 days. Prov: Petr Banda MD 06/11/17 Prednisone (Prednisone) 20 Mg Tab 60 MG PO DAILY for 5 Days, #15 TAB 0 Refills Prov: Petr Banda MD 06/11/17 Disposition: 01 DISCHARGE HOME Condition: Stable Petr Banda MD Jun 11, 2017 04:04
[2017-06-11 04:07] LABS: AUTOMATED NEUTROPHIL # 7.5 TH/MM3 (1.8-7.7); BASOPHIL # 0.1 TH/MM3 (0-0.2); BASOPHIL % 0.6 % (0.0-2.0); EOSINOPHIL % 0.2 % (0.0-4.0); HEMATOCRIT 40.9 % (39.0-51.0); HEMOGLOBIN 14.3 GM/DL (13.0-17.0); LYMPH % 6.1 % (9.0-44.0); LYMPHOCYTE # 0.5 TH/MM3 (1.0-4.8); MEAN CELL VOLUME 88.3 FL (80.0-100.0); MEAN CORPUSCULAR HEMOGLOBIN 30.9 PG (27.0-34.0); MEAN PLATELET VOLUME 8.7 FL (7.0-11.0); MONOCYTE # 0.8 TH/MM3 (0-0.9); NEUT % 84.1 % (16.0-70.0); PLATELET COUNT 147 TH/MM3 (150-450); RED BLOOD COUNT 4.64 MIL/MM3 (4.50-5.90); RED CELL DISTRIBUTION WIDTH 14.2 % (11.6-17.2)
[2017-06-11 04:18] LABS: PROTHROMBIN TIME - PATIENT 10.3 SEC (9.8-11.6)
[2017-06-11 04:25] LABS: ALT (GPT) 25 U/L (12-78)
[2017-06-11 04:28] LABS: ALKALINE PHOSPHATASE 87 U/L (45-117); TOTAL BILIRUBIN ADULT 0.6 MG/DL (0.2-1.0); TOTAL PROTEIN 7.2 GM/DL (6.4-8.2); TROPONIN I LESS THAN 0.02 NG/ML (0.02-0.05)
[2017-06-11 04:29] LABS: ALBUMIN 3.9 GM/DL (3.4-5.0); AST (GOT) 27 U/L (15-37); BICARBONATE 25.2 MEQ/L (21.0-32.0); BLOOD UREA NITROGEN 13 MG/DL (7-18); CALCIUM 8.3 MG/DL (8.5-10.1); CHLORIDE 104 MEQ/L (98-107); GLOMERULAR FILTRATION RATE 53 ML/MIN (>89); GLUCOSE,RANDOM 158 MG/DL (74-106); MAGNESIUM 1.8 MG/DL (1.5-2.5); SODIUM (NA) 138 MEQ/L (136-145)
--- NOTE | 2017-06-11 05:30 | RADRPT ---
EXAM DATE/TIME: 06/11/2017 04:25 [facility] COMPARISON: CHEST SINGLE AP, August 09, 2016, 11:04. INDICATIONS : Short of breath. MEDICAL HISTORY : Hypercholesterolemia. Sarcoidosis. Neuropathy. SURGICAL HISTORY : None. ENCOUNTER: Initial ACUITY: 2 days PAIN SCORE: 8/10 LOCATION: Bilateral chest FINDINGS: A single view of the chest demonstrates the lungs to be symmetrically aerated with bibasilar atelecta tic changes. Heart size is normal. Osseous structures are intact. CONCLUSION: Bibasilar atelectasis. Ruslan Reed MD on June 11, 2017 at 5:27 Board Certified Radiologist. This report was verified electronically.
[2017-06-11 07:09] LABS: BILIRUBIN, URINE NEG (NEG); BLOOD, URINE SMALL (NEG); GLUCOSE,URINE NEG (NEG); KETONE, URINE NEG (NEG); NITRITE,URINE NEG (NEG); URINE COLOR YELLOW (YELLW/STRAW); URINE LEUKOCYTE ESTERASE NEG (NEG)
[2017-06-11] MEDS ORDERED: AZIT250T3 PO (07:57)
[2017-06-11] MEDS ORDERED: PRED20 PO (07:57)
[2017-06-11 08:00] VITALS: BP 113/69; PULSE 82; RESP 19; O2SAT 98
--- NOTE | 2017-06-11 13:07 | EKG ---
Date Performed: 06/11/2017 Time Performed: 03:48:33 PTAGE: 52 years EKG: SINUS TACHYCARDIA WITH SHORT FL INTERVAL ABNORMAL RHYTHM ECG Since PREVIOUS TRACING , no significant change noted PREVIOUS TRACIN01/22/2017 01.18 DOCTOR: Joel Norwood Interpretating Date/Time 06/11/2017 13:06:18
== END 2017-06-11 08:24 | disposition home or self-care (01) ==
LOC: NEPC 03:38
DX: J06.9 Acute upper respiratory infection, unspecified (principal); R06.02 Shortness of breath; I10 Essential (primary) hypertension; R94.31 Abnormal electrocardiogram [ECG] [EKG]; Z88.0 Allergy status to penicillin; Z88.8 Allergy status to other drugs, medicaments and biological substances
CPT/HCPCS: 71045; 80053; 81001; 82550; 82552; 83605; 83735; 84484; 85025; 85610; 85730; 87040; 87804; 93005; 94664; 99285